=== PATIENT | male | born 1970 | race Caucasian/White ===

== ENCOUNTER 2018-02-21 08:48 | Emergency (ER) | payer BC ==
[2018-02-21] MEDS ORDERED: Acetaminophen TAB* 325 MG PO ONE (09:37)
--- NOTE | 2018-02-21 10:23 | RAD ---
HISTORY: Fever COMPARISONS: January 13, 2015 VIEWS: 7: Frontal dual-energy and lateral views of the chest. FINDINGS: CARDIOMEDIASTINAL SILHOUETTE: The cardiomediastinal silhouette is normal. ERYN: The eryn are normal. PLEURA: The costophrenic angles are sharp. No pleural abnormalities are noted. LUNG PARENCHYMA: The lung volumes are low. The lungs are clear. ABDOMEN: The upper abdomen is clear. There is no subphrenic gas. BONES AND SOFT TISSUES: Degenerative changes are noted along the spine. OTHER: None. IMPRESSION: LOW LUNG VOLUMES. NO ACTIVE CARDIOPULMONARY DISEASE.
[2018-02-21 10:56] VITALS: BP 116/65
[2018-02-21] MEDS ORDERED: Penicillin G Benzathine 1.2MU* 1,200,000 UNITS/2 ML SYR IM ONE (11:08)
[2018-02-21] MEDS ORDERED: Ibuprofen TAB* 200 MG PO ONE (11:10)
--- NOTE | 2018-02-21 12:37 | UC ---
Lele Pan Stephanie, [facility] for [facility] on 02/21/18 at 1125 . General HPI - HPI Summary HPI Summary: In room note: The pt is a 47 y/o M presenting to with c/o fever that began at 01:00 today. 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 Symptoms include diarrhea, sore throat and difficulty swallowing secondary to sore throat that began on 02/19/18 and dizziness since 01:00 that has since resolved. He reports recent sick contacts at work and had a dog kiss him on his lips. He reports recent skin infection on R hand a few years ago. The pt denies other physical symptoms including neck pain, N/V. Note: 47 y/o M with a hx of cellulitis and sepsis (according to pt), complains of elevated temperature to 106.5 F as taken at via temporal artery scanner. The pt is also congested with body aches and has a fullness in his chest with sore throat. He has visit hx significant for HTN that is being treated. He is also on an inhaler. Nurse Note: Pt states he has a hx of being septic from a staph infection. pt states he feels similar. pt states this started yesterday am. pt c/o shakes and feelings of being freezing. - History of Current Complaint Chief Complaint: UCRespiratory Stated Complaint: CONGESTED,BODYACHES Time Seen by Provider: 02/21/18 09:35 Hx Obtained From: Patient Onset/Duration: Gradual Onset, Lasting Days, Still Present Timing: Constant Current Severity: Moderate Pain Intensity: 8 Aggravating: nothing Alleviating: nothing Associated Signs & Symptoms: Positive: Fever - chills, diaphoresis, sore throat , difficulty swallowing, Other - chills, diaphoresis - Allergy/Home Medications Allergies/Adverse Reactions: Allergies Allergy/AdvReac Type Severity Reaction Status Date / Time No Known Allergies Allergy Verified 02/21/18 09:03 PMH/Surg Hx/FS Hx/Imm Hx Cardiovascular History: Hypertension - Surgical History Surgical History: Yes Surgery Procedure, Year, and Place: right ankle repair; abd hernia; wisdom teeth - Family History Known Family History: Positive: Cardiac Disease Negative: Renal Disease - Social History Occupation: Employed Part-time Lives: Alone Alcohol Use: Daily Alcohol Amount: 2 beers per day Substance Use Type: None Smoking Status (MU): Heavy Every Day Tobacco Smoker Type: Cigarettes Have You Smoked in the Last Year: Yes When Did the Patient Quit Smoking/Using Tobacco: has not smoked in 6 weeks - Immunization History Most Recent Influenza Vaccination: fall 2013 Most Recent Tetanus Shot: 01/12/15 Most Recent Pneumonia Vaccination: never Review of Systems Constitutional: Fever, Chills Skin: Negative Eyes: Negative ENT: Sore Throat, Other - difficulty swallowing Respiratory: Negative Cardiovascular: Negative Gastrointestinal: Diarrhea Genitourinary: Negative Motor: Negative Neurovascular: Negative Musculoskeletal: Negative Neurological: Negative Psychological: Negative All Other Systems Reviewed And Are Negative: Yes - Comments Additional Review of Systems Comments: POSITIVE: diarrhea, sore throat, difficulty swallowing, chills, fever, diaphoresis NEGATIVE: Neck pain, N/V Physical Exam - Summary Physical Exam Summary: Appearance: The patient is well-appearing, is in no pain distress, and is well- nourished. Eyes: Conjunctiva are clear. ENT: The hearing is grossly normal, the pharynx is normal, and the TMs are normal. There is no muffled or hoarse voice. No drooling present. Sinuses nontender. BILATERAL TONSILLAR SWELLING BUT NOT TO MIDLINE. SLIGHT BILATERAL EXUDATE AND ERYTHEMA, NO EVIDENCE OF PERITONSILAR ABSCESS ON EITHER SIDE. Neck: The neck is supple. MILD ANTERIOR CERVICAL ADENOPATHY WITH DISCOMFORT. Respiratory: The chest is nontender. The lungs are clear, there are normal breath sounds, and there is no respiratory distress. Cardiovascular: Heart is regular rate and rhythm. There is no murmur. Abdomen: The abdomen is soft and nontender. There is no organomegaly. Bowel sounds: present Musculoskeletal: Strength is intact. The patient moves all extremities. Neurological: The patient is alert and oriented 3x. Cranial nerves 2-12 intact. Psychological: The patient displays age appropriate behavior Skin: Negative for rashes. PT CLEARLY DIAPHORETIC Triage Information Reviewed: Yes Vital Signs: Initial Vital Signs Temp 106.5 F 02/21/18 08:58 Pulse 97 02/21/18 08:58 Resp 18 02/21/18 08:58 BP 154/85 02/21/18 08:58 Pulse Ox 97 02/21/18 08:58 Vital Signs Reviewed: Yes Diagnostics - Radiology CXR Xray Interpretation: No Acute Changes Radiology Interpretation Completed By: Radiologist - LOW LUNG VOLUMES. NO ACTIVE CARDIOPULMONARY DISEASE. physician has reviewed this report. Course/Dx - Course Course Of Treatment: Medications have been included in the original chart and reviewed.Elevated BP but has current hypertension diagnosis and treatment. This should be rechecked a few times in the next month. 47 y/o M with sore throat and a temperature of 106 F. CXR and UA do not reveal an infection. Influenza test negative. Rapid strep positive. Orthostatics mildly positive with increasing pulse although pt is not symptomatic. His neck is supple and he has no rash with previous hx of cellulitis and sepsis noted. His temperature was responsive to acetaminophen. physician diagnosed the pt with strep pharyngitis and gave him 1.2 million units of benzathine penicillin and strongly urged the pt to go to the ED if he has increased difficulty swallowing and continued temperature tomorrow. Vital signs stable at discharge although he does have a temp of 101.4 F. - Differential Dx - Multi-Symptom Differential Diagnoses: Other - influenza vs strep Provider Diagnoses: strep pharyngitis; mild dehydration Discharge - Sign-Out/Discharge Documenting (check all that apply): Discharge/Admit/Transfer - Discharge - Discharge Plan Condition: Stable Disposition: HOME Patient Education Materials: Dehydration (ED), Strep Throat (ED) Referrals: Natasha Porter [Primary Care Provider] - Additional Instructions: Elevated BP but has current hypertension diagnosis and treatment. This should be rechecked a few times in the next month. PLEASE SEEK CARE AT THE EMERGENCY DEPARTMENT IF SYMPTOMS WORSEN OR IF NEW SYMPTOMS DEVELOP. FOLLOW UP WITH YOUR PRIMARY CARE PHYSICIAN. WE DISCUSSED: 1. You have strep throat. 2. Your fever appears to respond to both acetaminophen and ibuprofen. You can take thes emedications at home for a temperature above 102, or if you feel uncomfortably warm at any temperature. 3. You have been given an antibiotic shot to treat your strep throat. You should not need any other antibiotics. 4. You should follow up with me on Friday if you are not improving. 5. IF YOU HAVE A TEMPERATURE TOMORROW, GO TO THE ED. 6. You are dehydrated. Drink lots of fluids today. You can drink Gatorade but dilute it with water; half gatorade, half water. Bananas are a good source of potassium. 7. If you get dizzy with sanding or short of brath, re check. 8. Call at any time with questions ro concerns. Go to ED for new pain or symptoms. Difficulty swallowing or breathing. 9. Teas and honey for sore throat; also, ice chips can help. - Billing Disposition and Condition Condition: STABLE Disposition: HOME The documentation as recorded by the Lele an Stephanie accurately reflects the service I personally performed and the decisions made by me, Jairo Jesus MD.
--- NOTE | 2018-02-21 19:24 | UC ---
- Progress Note Progress Note: February 21, 2018 1900 I spoke to the patient to check on his condition. His throat still hurts but is less sore. His temperature is "around 100." I advised him to go to the ED tomorrow morning if his temperature is above 98.6. I told him I will check on his chart to see if he needed more evaluation and call him, as needed. I told him that he should call or see me on Friday if he has any problems at that time. He said that he understood and would go to ED , if he has a temperature tomorrow. Jairo Jesus MD Discharge - Sign-Out/Discharge Documenting (check all that apply): Post-Discharge Follow Up - Discharge Plan Condition: Stable Disposition: HOME Patient Education Materials: Dehydration (ED), Strep Throat (ED) Referrals: Natasha Porter [Primary Care Provider] - Additional Instructions: Elevated BP but has current hypertension diagnosis and treatment. This should be rechecked a few times in the next month. PLEASE SEEK CARE AT THE EMERGENCY DEPARTMENT IF SYMPTOMS WORSEN OR IF NEW SYMPTOMS DEVELOP. FOLLOW UP WITH YOUR PRIMARY CARE PHYSICIAN. WE DISCUSSED: 1. You have strep throat. 2. Your fever appears to respond to both acetaminophen and ibuprofen. You can take thes emedications at home for a temperature above 102, or if you feel uncomfortably warm at any temperature. 3. You have been given an antibiotic shot to treat your strep throat. You should not need any other antibiotics. 4. You should follow up with me on Friday if you are not improving. 5. IF YOU HAVE A TEMPERATURE TOMORROW, GO TO THE ED. 6. You are dehydrated. Drink lots of fluids today. You can drink Gatorade but dilute it with water; half gatorade, half water. Bananas are a good source of potassium. 7. If you get dizzy with sanding or short of brath, re check. 8. Call at any time with questions ro concerns. Go to ED for new pain or symptoms. Difficulty swallowing or breathing. 9. Teas and honey for sore throat; also, ice chips can help. - Billing Disposition and Condition Condition: STABLE Disposition: HOME
--- NOTE | 2018-02-22 17:13 | UC ---
- Progress Note Progress Note: Progress Note: Spoke to patient. He is afebrile. Throat still hurts. He will recheck with me tomorrow at the [facility]. Jairo Jesus MD Discharge - Sign-Out/Discharge Documenting (check all that apply): Post-Discharge Follow Up - Discharge Plan Condition: Stable Disposition: HOME Patient Education Materials: Dehydration (ED), Strep Throat (ED) Referrals: Natasha Porter [Primary Care Provider] - Additional Instructions: Elevated BP but has current hypertension diagnosis and treatment. This should be rechecked a few times in the next month. PLEASE SEEK CARE AT THE EMERGENCY DEPARTMENT IF SYMPTOMS WORSEN OR IF NEW SYMPTOMS DEVELOP. FOLLOW UP WITH YOUR PRIMARY CARE PHYSICIAN. WE DISCUSSED: 1. You have strep throat. 2. Your fever appears to respond to both acetaminophen and ibuprofen. You can take thes emedications at home for a temperature above 102, or if you feel uncomfortably warm at any temperature. 3. You have been given an antibiotic shot to treat your strep throat. You should not need any other antibiotics. 4. You should follow up with me on Friday if you are not improving. 5. IF YOU HAVE A TEMPERATURE TOMORROW, GO TO THE ED. 6. You are dehydrated. Drink lots of fluids today. You can drink Gatorade but dilute it with water; half gatorade, half water. Bananas are a good source of potassium. 7. If you get dizzy with sanding or short of brath, re check. 8. Call at any time with questions ro concerns. Go to ED for new pain or symptoms. Difficulty swallowing or breathing. 9. Teas and honey for sore throat; also, ice chips can help. - Billing Disposition and Condition Condition: STABLE Disposition: HOME
== END 2018-02-21 11:43 | disposition home or self-care (01) ==
LOC: UCEAST 08:48
DX: J02.0 Streptococcal pharyngitis (principal); E86.0 Dehydration; I10 Essential (primary) hypertension; Z87.891 Personal history of nicotine dependence
CPT/HCPCS: 71046; 81003; 87502; 87651; 96372; 99213; A9270-GY; G0463; J0558

== ENCOUNTER 2018-02-23 07:04 | Emergency (ER) | payer BC ==
[2018-02-23 07:24] VITALS: BP 141/72
--- NOTE | 2018-02-23 08:12 | UC ---
Brandi Pan Emily, scribed for Jairo Jesus MD on 02/23/18 at 0757 . Throat Pain/Nasal [place]ade HPI - HPI Summary HPI Summary: In Room: This patient is a 47 year old M presenting to [facility] care with a chief complaint of sore throat that began on 02/21/2018. The patient rates the pain 5/ 10 in severity. Symptoms aggravated by swallowing. Symptoms alleviated by nothing. Patient reports fever (resolved) and diaphoresis. Patient denies chills. Pt reports sick contacts at work. MD: Vital signs stable. Temperature 96.3. Blood pressure elevated systolic is being treated. Patient returns with continued sore throat, at my recommendation. Nurse's: Recheck from Friday per Dr. Burroughs recommendation presents with sore throat today. - History of Current Complaint Chief Complaint: UCGeneralIllness Stated Complaint: SORE THROAT Time Seen by Provider: 02/23/18 07:08 Hx Obtained From: Patient Onset/Duration: Sudden Onset, Lasting Days, Still Present Severity: Moderate Pain Intensity: 5 Pain Scale Used: 0-10 Numeric Associated Signs & Symptoms: Positive: Fever - Allergies/Home Medications Allergies/Adverse Reactions: Allergies Allergy/AdvReac Type Severity Reaction Status Date / Time No Known Allergies Allergy Verified 02/23/18 07:24 PMH/Surg Hx/FS Hx/Imm Hx Previously Healthy: No Cardiovascular History: Hypertension Respiratory History: Bronchitis - Surgical History Surgical History: Yes Surgery Procedure, Year, and Place: right ankle repair; abd hernia; wisdom teeth - Family History Known Family History: Positive: Cardiac Disease Negative: Renal Disease - Social History Occupation: Employed Full-time Lives: Alone Alcohol Use: Daily Alcohol Amount: 2 beers per day Substance Use Type: None Smoking Status (MU): Heavy Every Day Tobacco Smoker Type: Cigarettes Have You Smoked in the Last Year: Yes When Did the Patient Quit Smoking/Using Tobacco: has not smoked in 6 weeks - Immunization History Most Recent Influenza Vaccination: fall 2013 Most Recent Tetanus Shot: 01/12/15 Most Recent Pneumonia Vaccination: never Review of Systems Constitutional: Fever - resolved, Other - Negative chills Skin: Other - Positive diaphoresis ENT: Sore Throat All Other Systems Reviewed And Are Negative: Yes Physical Exam - Summary Physical Exam Summary: Appearance: The patient is well-appearing, is in no pain distress, and is well- nourished. Eyes: Conjunctiva are clear. ENT: The hearing is grossly normal and the TMs are normal. There is no muffled or hoarse voice. TONSILS ARE SWOLLEN BILATERALLY, SOME EVIDENCE OF PUS NOTED IN THE RIGHT TONSILLAR CRYPT. TONGUE IS SLIGHTLY WHITE. THIS COULD BE YEAST IN RESPONSE TO ANTIBIOTICS OR GEOGRAPHIC TONGUE. THE PATIENT HAS HAD GLUCOSE CHECKED AND IT WAS WITHIN NORMAL LIMITS IN THE LAST MONTH. THROAT IS OPEN. NO PERITONSILAR TENDERNESS, THAT WOULD BE CONSISTENT WITH ABSCESS. Neck: MILD ANTERIOR ADENOPATHY THAT IS TENDER, THIS IS CONSISTENT WITH MY PREVIOUS EXAM 48 HOURS AGO. Respiratory: The chest is nontender. The lungs are clear, there are normal breath sounds, and there is no respiratory distress. Cardiovascular: Heart is regular rate and rhythm. There is no murmur. Abdomen: The abdomen is soft and nontender. There is no organomegaly. Bowel sounds: present Musculoskeletal: Strength is intact. The patient moves all extremities. Neurological: The patient is alert. Psychological: The patient displays age appropriate behavior Skin: Negative for rashes. Triage Information Reviewed: Yes Vital Signs: Initial Vital Signs Temp 96.3 F 02/23/18 07:08 Pulse 73 02/23/18 07:08 Resp 19 02/23/18 07:08 BP 142/76 02/23/18 07:08 Pulse Ox 97 02/23/18 07:08 Vital Signs Reviewed: Yes Throat Pain/Nasal Course/Dx - Course Assessment/Plan: 47 year old male with a significant case of strep throat seen by me 2 days ago with a temperature of 106.5, appears to be getting better. He is afebrile and without orthostasis today. He does have white tongue, which may be oral candidiasis. His rapid strep remains positive. I will start him on Keflex to deal with any possible carrier state, ad will begin him on clotrimazole troches. He will follow up for any temperature or continued complaints this coming week with PCP. I have instructed him to go to the ED for any new problems including temperature or difficulty swallowing. Elevated BP but has current hypertension diagnosis and treatment. This should be rechecked a few times in the next month. Medications have been included in the original chart and reviewed. - Differential Dx/Diagnosis Provider Diagnoses: strep throat, resolving; oral candidiasis Discharge - Sign-Out/Discharge Documenting (check all that apply): Discharge/Admit/Transfer - Discharge Plan Condition: Stable Disposition: HOME Prescriptions: Cephalexin CAP* [Keflex 500 CAP*] 500 mg PO QID #28 cap MDD 4 Clotrimazole JP* [Mycelex Jp*] 10 mg MT SEE INSTRUCTIONS #70 jp Patient Education Materials: Strep Throat (ED), Oral Candidiasis (ED) Referrals: Natasha Porter [Primary Care Provider] - Additional Instructions: WE DISCUSSED: 1. Your infection is under control. 2. Your test today was still positive and your vital signs were normal. You have white substance on your tongue, probably yeast related to the antibiotic. 3. To make sure any remaining infection is covered, start Keflex 500mg, four times a day for 7 days. I have given you medicine, five times a day for 2 weeks for your tongue. 4. You should not be spiking a fever anymore and your sore throat will slowly get better over the next. If you have any new pain or temperature, go to ED or call us. 5. Follow up with your doctor, if you still have a sore throat after 2 weeks. 6. In 2 days you should not having any temperature and your throat and tongue should be getting better. If not see your doctore. 7. Again, go to ED for any sudden change in swallowing, breathing or temperature. - Billing Disposition and Condition Condition: STABLE Disposition: HOME The documentation as recorded by the Brandi an Emily accurately reflects the service I personally performed and the decisions made by me, Jairo Jesus MD.
== END 2018-02-23 08:15 | disposition home or self-care (01) ==
LOC: UCEAST 07:04
DX: J02.0 Streptococcal pharyngitis (principal); B37.0 Candidal stomatitis; R61 Generalized hyperhidrosis; I10 Essential (primary) hypertension; J35.8 Other chronic diseases of tonsils and adenoids; F17.210 Nicotine dependence, cigarettes, uncomplicated
CPT/HCPCS: 87651; 99212; G0463

== ENCOUNTER 2020-01-13 12:41 | Emergency (ER) | payer BC ==
[2020-01-13] MEDS ORDERED: NS 0.9% 1000 ML** 1,000 ML IV ONE (12:58)
--- NOTE | 2020-01-13 13:04 | ED ---
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 He later went to the bathroom and felt improved, but his symptoms returned and he notes having chest pain described as a pressure sensation. He denies the chest pain radiated anywhere. Patient denies shortness of breath, diaphoresis, nausea, vomiting, or diarrhea. He notes having a change in bowel movements recently. No aggravating or alleviating factors are reported. He reports similar symptoms a few years ago for which he had a cardiac workup at [facility], [place]. He denies any positive contact with COVID-19 positive person. PMHx is significant for gout, anxiety, HTN, and DM, but he denies a history of cardiac disease or blood clots. He states he recently increased his dosage for HTN medications on 01/07/20. He has also been prescribed Metformin, but has not yet started this medication. FMHx is significant for cardiac disease and HLD. Typically, patient drinks 16 beers weekly, but states he drank 7-8 beers on the night of 01/12/20. Patient also admits occasional tobacco use. - History Of Current Complaint Chief Complaint: EDDizziness Time Seen by Provider: 01/13/20 12:43 Hx Obtained From: Patient Onset/Duration: Sudden Onset, Still Present Timing: Constant Severity Currently: Moderate Severity Initially: Moderate Character: Pressure Aggravating Factor(s): Nothing Alleviating Factor(s): Nothing Associated Signs And Symptoms: Positive: Chest Pain, Recent Medication Changes. Negative: SOB, Nausea, Vomiting, Diarrhea, Diaphoresis - Allergies/Home Medications Allergies/Adverse Reactions: Allergies Allergy/AdvReac Type Severity Reaction Status Date / Time No Known Allergies Allergy Verified 02/23/18 07:24 Home Medications: Home Medications Aspirin EC TAB* [Ecotrin EC Low Dose 81 MG*] 81 mg PO DAILY 01/16/15 [History Confirmed 01/13/20] Lisinopril TAB* [Prinivil TAB 10 MG*] 40 mg PO DAILY 01/16/15 [History Confirmed 01/13/20] Multivitamins/Minerals TAB* [Theragran/minerals TAB*] 1 tab PO DAILY 01/16/15 [ History Confirmed 01/13/20] Moneta-3 Fatty Acids (Nf) [Fish Oil (NF)] 1,000 mg PO DAILY 01/16/15 [History Confirmed 01/13/20] Allopurinol TAB* [Zyloprim 300 MG TAB*] 300 mg PO DAILY 01/13/20 [History Confirmed 01/13/20] Colchicine* [Colcrys*] 0.6 mg PO ONCE 01/13/20 [History Confirmed 01/13/20] Indomethacin CAP* [Indocin CAP*] 50 mg PO TID PRN 01/13/20 [History Confirmed ] PMH/Surg Hx/FS Hx/Imm Hx Previously Healthy: Yes Endocrine/Hematology History: Reports: Hx Diabetes Cardiovascular History: Reports: Hx Hypertension Denies: Hx Congestive Heart Failure, Hx Embolism Respiratory History: Reports: Other Respiratory Problems/Disorders - INHAILER Denies: Hx Pulmonary Embolism Musculoskeletal History: Reports: Hx Gout Sensory History: Reports: Hx Contacts or Glasses Opthamlomology History: Reports: Hx Contacts or Glasses Psychiatric History: Reports: Hx Anxiety - Surgical History Surgical History: Yes Surgery Procedure, Year, and Place: right ankle repair; abd hernia; wisdom teeth Infectious Disease History: No Infectious Disease History: Denies: Hx Clostridium Difficile, Hx Hepatitis, Hx Human Immunodeficiency Virus (HIV), Hx of Known/Suspected MRSA, Hx Shingles, Hx Tuberculosis, Hx Known/ Suspected VRE, Hx Known/Suspected VRSA, History Other Infectious Disease, Traveled Outside the [place] in Last 30 Days - Family History Known Family History: Positive: Cardiac Disease, Other - HLD Negative: Renal Disease - Social History Occupation: Employed Full-time Alcohol Use: Daily Alcohol Amount: 2 beers per day Hx Substance Use: No Substance Use Type: Reports: None Hx Tobacco Use: Yes - CIGARS OCCASSIONALY Smoking Status (MU): Heavy Every Day Tobacco Smoker Type: Cigarettes, Cigars Have You Smoked in the Last Year: Yes Review of Systems Negative: Skin Diaphoresis Positive: Chest Pain Negative: Shortness Of Breath Positive: Other - Positive changes in bowel movements. Negative: Vomiting, Diarrhea, Nausea Neurological/Mental Status: Other - Positive lightheadedness Positive: Paresthesia - Bilateral UE, left more than right All Other Systems Reviewed And Are Negative: Yes Physical Exam - Summary Physical Exam Summary: Constitutional: Well-developed, Obese, Alert. (-) Distressed Skin: Warm, Dry HENT: Normocephalic; Atraumatic Eyes: Conjunctiva normal Neck: Musculoskeletal ROM normal neck. (-) JVD, (-) Stridor, (-) Tracheal deviation Cardio: Rhythm regular, rate normal, Heart sounds normal; Intact distal pulses; The pedal pulses are 2+ and symmetric. Radial pulses are 2+ and symmetric. (-) Murmur Pulmonary/Chest wall: Effort normal. (-) Respiratory distress, (-) Wheezes, (-) Rales Abd: Soft, (-) tenderness, (-) Distension, (-) Guarding, (-) Rebound Musculoskeletal: (-) Edema Lymph: (-) Cervical adenopathy Neuro: Alert, Oriented x3 Psych: Mood and affect Normal Triage Information Reviewed: Yes Vital Signs On Initial Exam: Initial Vitals Temp Pulse Resp BP Pulse Ox 98.6 F 70 22 173/87 97 01/13/20 12:45 01/13/20 12:45 01/13/20 12:45 01/13/20 12:45 01/13/20 12:45 Vital Signs Reviewed: Yes Procedures - Sedation Patient Received Moderate/Deep Sedation with Procedure: No Diagnostics - Vital Signs Vital Signs Temp Pulse Resp BP Pulse Ox 01/13/20 12:45 98.6 F 70 22 173/87 97 - Laboratory Result Diagrams: 01/13/20 13:06 01/13/20 13:06 Lab Statement: Any lab studies that have been ordered have been reviewed, and results considered in the medical decision making process. - Radiology Chest X-ray Radiology Interpretation Completed By: Radiologist Summary of Radiographic Findings: Chest X-ray IMPRESSION: NO ACTIVE CARDIOPULMONARY DISEASE IS NOTED. Reviewed by Dr. Emery. - EKG 12:57 Cardiac Rate: NL - 65 BPM EKG Rhythm: Sinus Rhythm ST Segment: Normal Ectopy: None Summary of EKG Findings: EKG at 12:57 shows normal sinus rhythm with 65 BPM, no ischemic changes. Dr. Emery has reviewed and interpreted this EKG. 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 He later went to the bathroom and felt improved, but his symptoms returned and he notes having chest pain described as a pressure sensation. He denies the chest pain radiated anywhere. Patient denies shortness of breath, diaphoresis, nausea, vomiting, or diarrhea. He notes having a change in bowel movements recently. He reports similar symptoms a few years ago for which he had a cardiac workup at [facility], [place]. PMHx is significant for gout, anxiety, HTN, and DM, but he denies a history of cardiac disease or blood clots. He states he recently increased his dosage for HTN medications on 01/07/20. He has also been prescribed Metformin, but has not yet started this medication. FMHx is significant for cardiac disease and HLD. Typically, patient drinks 16 beers weekly, but states he drank 7-8 beers on the night of 01/12/20. Patient also admits occasional tobacco use. On exam, obese male. In the ED course, patient was given IV fluids. EKG at 12:57 shows normal sinus rhythm with 65 BPM, no ischemic changes. Chest X-ray IMPRESSION: NO ACTIVE CARDIOPULMONARY DISEASE IS NOTED. All other abnormal lab results are not pertinent to current cc. Heart Score: 3. Patient will be discharged with a diagnosis of chest pain, dizziness, and HTN. Follow up with PCP in 1-3 days. - Diagnoses Provider Diagnoses: HTN (hypertension), Chest pain, Dizziness Discharge ED - Sign-Out/Discharge Documenting (check all that apply): Patient Departure - Discharge - Discharge Plan Condition: Stable Disposition: HOME Patient Education Materials: Chest Pain (ED) Referrals: [facility] [Outside] Natasha Porter [Primary Care Provider] - Additional Instructions: RETURN TO THE EMERGENCY DEPARTMENT FOR CHANGING OR WORSENING SYMPTOMS. Follow up with your primary care physician in 1-3 days. - Billing Disposition and Condition Condition: STABLE Disposition: Home - Attestation Statements Document Initiated by Scribe: Yes Documenting Scribe: Dori Velasquez Provider For Whom Scribe is Documenting (Include Credential): Cosme Emery DO Scribe Attestation: IDori, scribed for Cosme Emery DO on 01/13/20 at 1728. Scribe Documentation Reviewed: Yes Provider Attestation: The documentation as recorded by the scribe, Dori Velasquez accurately reflects the service I personally performed and the decisions made by me, Cosme Emery DO Status of Scribe Document: Viewed
[2020-01-13 13:20] LABS: ABS Eosinophils 0.1 10^3/ul (0-0.6); ABS Lymphocytes 1.3 10^3/ul (1.0-4.8); ABS Monocytes 0.4 10^3/ul (0-0.8); ABS Neutrophils 4.8 10^3/ul (1.5-7.7); Hematocrit 41 % (42-52); Mean Corpuscular HGB Conc 35 g/dL (31-36); Mean Corpuscular Hemoglobin 32 pg (27-31); Mean Corpuscular Volume 91 fL (80-94); Mean Platelet Volume 8.7 fL (7.4-10.4); Nucleated Red Blood Cells % 0.1; Platelet Count 190 10^3/uL (150-450); Red Blood Count 4.44 10^6 /uL (4.18-5.48); Red Cell Distribution Width 15 % (10-15); White Blood Count 6.7 10^3/uL (3.5-10.8)
[2020-01-13 13:33] LABS: ALT 35 U/L (7-52); AST 33 U/L (13-39); Albumin/Globulin Ratio 1.4 (1-3); Alkaline Phosphatase 70 U/L (34-104); Anion Gap 6 mmol/L (2-11); BUN/Creatinine Ratio 12.9 (8-20); Blood Urea Nitrogen 12 mg/dL (6-24); CO2 Carbon Dioxide 25 mmol/L (22-32); Chloride 104 mmol/L (101-111); EGFR African American 103.6 (>60); EGFR Non-African American 85.7 (>60); Globulin 2.9 g/dL (2-4); Glucose 117 mg/dL (70-100); Potassium 4.5 mmol/L (3.5-5.0); Sodium 135 mmol/L (135-145); Total Protein 6.9 g/dL (6.4-8.9)
[2020-01-13 13:35] LABS: Troponin I 0.01 ng/mL (<0.03)
[2020-01-13 13:48] LABS: Alcohol < 10 mg/dL (<10)
--- OUTSIDE RECORDS SUMMARY | 2020-01-13 13:58 | XMS REPORT | Continuity of Care Document ---
:1970 External Reference #:[id number] Author Name Vicente Colon PA Address [address] [place] [id number] Problems Active Problems Provider Date Raised prostate specific antigen Vicente Colon PA Onset: 03/12/2018 Note: >6.58 --- 03/2018 -- Repeat 2.8 Morbid obesity Chantel Huynh MD Onset: 07/27/2015 Benign essential hypertension Renetta Moon MD Onset: 06/23/2006 Mixed hyperlipidemia Renetta Moon MD Onset: 09/17/2016 C-reactive protein abnormal Vicente Colon PA Onset: 09/17/2016 Note: >34 -- very elevated. Tobacco user Chantel Huynh MD Onset: 07/27/2015 Alcohol abuse Chantel Huynh MD Onset: 07/27/2015 Obstructive sleep apnea syndrome Chantel Huynh MD Onset: 07/27/2015 Gout Chantel Huynh MD Onset: 10/26/2015 HIV negative Vicente Colon PA Onset: 03/12/2018 Note: 03/2018 Hepatitis C screening Vicente Colon PA Onset: 03/12/2018 Note: Neg -- 03/2018 Social History Type Date Description Comments Sex Unknown Tobacco Use Start: Unknown End: Patient is a former smoker Quit 09/2016. chews Unknown on cigars occasionally. Smoking Status Reviewed: 11/17/19 Patient is a former smoker Quit 09/2016. chews on cigars occasionally. Allergies, Adverse Reactions, Alerts Active Allergies Reaction Severity Comments Date Bee Sting 12/26/2004 Bee Sting 12/26/2004 Medications Active Medications SIG Qnty Indications Ordering Date Provider Amoxicillin/Clavulan 1 by mouth every 20tabs J01.90 [facility], 11/17/2019 ate Potassium 12 hours Renetta Mejia MD 875-125mg Tablets Dulera 2 puff twice daily 8.800gm J01.90 [facility], 11/17/2019 100-5mcg/Act [sample x1] Renetta Mejia MD Aerosol Allopurinol take 1 tablet by 112tabs M10.9 [facility], 08/30/2019 100mg mouth every day Renetta Mejia MD Tablets for 3 weeks and then take 2 tablet by mouth every day for 3 weeks then take 3 tablet by mouth daily Activa Graduated wear thru day as 4pair I83.813 [facility], 08/30/2019 Therapy much as possible Renetta Mejia MD 20-30MMHG/Knee High/X-Large Misc Livalo 1 by mouth every 90tabs E78.2 [facility], 12/25/2018 4mg Tablets day [Failed Zocor, Renetta Mejia MD Lipitor, Crestor] Nicotine Mini 1 by mouth every 2 324units Z72.0 [facility], 09/17/2016 2mg hours as needed Renetta Mejia MD Lozenges cravings Proair HFA 2 P Four Times A 1units R06.2 Natasha Porter 11/19/2013 Day as Needed 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 Max 4 Days Per Flare Lisinopril Take 1 Tablet By 90tabs I10 [facility], 10/22/2011 10mg Mouth Daily Renetta Mejia MD Tablets Aspirin 1 PO qd I10 [facility], 01/21/2006 81mg Chewtabs Renetta Mejia MD Vitamin C 1 by mouth every Unknown Capsules day Vitamin D 1 by mouth every Unknown (Cholecalciferol) day Capsules Immunizations CPT Code Status Date Vaccine Lot # [id number] Given 07/05/2019 Influenza Vac, Quadrivalent, Split, 0.5mL Dosage, Im Use [id number] Given 07/29/2016 Influenza Vac, Quadrivalent, Split, 0.5mL Dosage, [id number] Im Use [id number] Given 08/11/2015 Influenza Vac, Quadrivalent, Split, 0.5mL Dosage, [id number] Im Use 55339 Given 01/12/2015 Tdap (Adacel) Ages 7 And Above Only [id number] Given 07/23/2013 Fluzone Trivalent Immunization [id number] Given 06/23/2006 Tetanus And Diptheria Toxoid 7 Years And Older [id number] Preserv Free Vital Signs Date Vital Result Comment 11/17/2019 10:04am Body Temperature 98.0 F Weight 365.19 lb Heart Rate 73 /min BP Systolic 136 mmHg BP Diastolic 83 mmHg Height 73 inches 6'1" BMI (Body Mass Index) 48.2 kg/m2 10/22/2019 8:01am Weight 359.19 lb Heart Rate 60 /min BP Systolic 140 mmHg BP Diastolic 83 mmHg Height 73 inches 6'1" BMI (Body Mass Index) 47.4 kg/m2 Results Test Acquired Date Facility Test Result H/L Range Note Laboratory test 11/17/2019 Done In Doctors Office 1 Rapid Flu A=NEG B=NEG finding Test (In House) Laboratory test 10/20/2019 [facility] Uric Acid 8.5 mg/dL High 2.6-8.4 finding Comprehensive Met 08/17/2019 [facility] Sodium 141 mmol/L 135-146 1 Panel-[facility] Potassium 5.3 mmol/L High 3.5-5.2 Chloride# 102 mmol/L 97-110 2 Carbon Dioxide 22 mmol/L Low 24-34 Calcium 9.6 mg/dL 8.5-10.5 3 Glucose 104 mg/dL 70-105 BUN 14 mg/dL 6-26 Creatinine 1.0 mg/dL 0.5-1.4 Total Protein 7.0 g/dL 6.0-8.0 Albumin 4.3 g/dL 3.6-4.9 Globulin 2.7 g/dL 2.0-3.5 A/G Ratio 1.6 Ratio 1.0-2.2 Total Bilirubin 0.7 mg/dL 0.1-1.3 Alkaline Phosphatase 70 U/L 24-140 Alt 30 U/L 3-42 Ast 24 U/L 8-42 Anion Gap 17 mmol/L High 5-15 4 Female Egfr 68 >60 5 Male Egfr 90 >60 6 Lipid 08/17/2019 [facility] Cholesterol 211 mg/dL High 50-199 Triglycerides 240 mg/dL High 30-200 HDL 40 mg/dL 29-71 7 Chol/ HDL Ratio 5.3 ratio 4.0-6.7 VLDL 48 mg/dL High 2-29 LDL (Calc) 123 mg/dL High 20-99 8 Laboratory test finding 08/17/2019 [facility] Magnesium 1.8 mg/dL 1.5-2.7 Uric Acid 8.6 mg/dL High 2.6-8.4 Hemoglobin A1c 08/17/2019 [facility] Hemoglobin A1c 6.1 % High 4.1-5.9 Estimated Average Glucose Calc 128 mg/dL 71-140 1 Updated reference range on new analyzer 2 Updated reference range on new analyzer 3 Updated reference range 02-03-2019 4 Updated Reference Range 5 Concerning GFR Guidelines for Americans: Normal function or mild renal disease, if clinically at risk: >/= 60 mL/min Moderately decreased: 30-59 Severely decreased: 15-29 Renal failure: <15 There is reduced accuracy above 60ml/min/1.73 m squared, but the numeric value may be clinically useful in the near 60 range 6 Concerning GFR Guidelines: Normal function or mild renal disease, if clinically at risk: >/= 60 mL/min Moderately decreased: 30-59 Severely decreased: 15-29 Renal failure: <15 There is reduced accuracy above 60ml/min/1.73 m squared, but the numeric value may be clinically useful in the near 60 range Glomerular Filtration Rate (GFR) is estimated based on the CKD-EPI equation, which assumes a steady state for creatinine as recommended by the National Kidney Disease Education Program in conjunction with the National Institutes of Health and the National Kidney Foundation. Clinical conditions in which it may be necessary to measure GFR by using clearance methods include extremes of age and body size, severe malnutrition or obesity, diseases of skeletal muscle, paraplegia or quadriplegia, vegetarian diet, rapidly changing kidney function, and calculation of the dose of potentially toxic drugs that are excreted by the kidneys. 7 Per NCEP ATP III Guidelines: Results lower than 40 mg/dL are suggestive of increased risk for coronary artery disease. Results > or = to 60 mg/dL are considered a negative risk factor. 8 Per NCEP ATP III Guidelines: Normal Population <130 Patients with medical conditions: CHD/DM Optimal: <100 Borderline high: 130-159 High: 160-189 Very high: >189 Procedures Description No Information Available Medical Devices Description No Information Available Encounters Type Date Location Provider Dx Diagnosis Office Visit 10/22/2019 8:00a Vicente Johnson PA I10 Essential ( primary) hypertension E78.2 Mixed hyperlipidemia R73.9 Hyperglycemia, unspecified M10.9 Gout, unspecified G47.33 Obstructive sleep apnea (adult) (pediatric) R97.20 Elevated prostate specific antigen [PSA] Z72.0 Tobacco use 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 E66.01 Morbid (severe) obesity due to excess calories Z68.42 Body mass index (BMI) 45.0-49.9, adult Office Visit 08/30/2019 2:20p Vicente Johnson PA I10 Essential ( primary) hypertension E78.2 Mixed hyperlipidemia M10.9 Gout, unspecified R73.9 Hyperglycemia, unspecified G47.33 Obstructive sleep apnea (adult) (pediatric) Z72.0 Tobacco use R97.20 Elevated prostate specific antigen [PSA] 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 E66.01 Morbid (severe) obesity due to excess calories Z68.42 Body mass index (BMI) 45.0-49.9, adult Assessments Date Code Description Provider 11/17/2019 J01.90 Acute sinusitis, unspecified Vicente Colon PA 11/17/2019 R53.83 Other fatigue Vicente Colon PA 11/17/2019 E66.01 Morbid (severe) obesity due to excess Vicente Colon PA calories 11/17/2019 M10.9 Gout, unspecified Vicente Cloon PA 11/17/2019 Z68.42 Body mass index (BMI) 45.0-49.9, adult Vicente Colon PA 11/17/2019 J02.9 Acute pharyngitis, unspecified Vicente Colon PA 10/22/2019 I10 Essential (primary) hypertension Vicente Colon PA 10/22/2019 E78.2 Mixed hyperlipidemia Vicente Colon PA 10/22/2019 R73.9 Hyperglycemia, unspecified Vicente Colon PA 10/22/2019 M10.9 Gout, unspecified BiterVicente PA 10/22/2019 G47.33 Obstructive sleep apnea (adult) (pediatric) Vicente Colon PA 10/22/2019 R97.20 Elevated prostate specific antigen [PSA] Vicente Colon PA 10/22/2019 Z72.0 Tobacco use TheresarVicente PA 10/22/2019 I83.813 Varicose veins of bilateral lower Vicente Colon PA extremities with pain 10/22/2019 E66.01 Morbid (severe) obesity due to excess Vicente Colon PA calories 10/22/2019 Z68.42 Body mass index (BMI) 45.0-49.9, adult Vicente Colon PA 10/20/2019 M10.9 Gout, unspecified Renetta Moon MD 10/20/2019 M10.9 Gout, unspecified Nurses Schedule Joann 10/20/2019 M10.9 Gout, unspecified [facility] 08/30/2019 I10 Essential (primary) hypertension Vicente Colon PA 08/30/2019 E78.2 Mixed hyperlipidemia Vicente Colon PA 08/30/2019 M10.9 Gout, unspecified BiteVicente evans PA 08/30/2019 R73.9 Hyperglycemia, unspecified BiteVicente evans PA 08/30/2019 G47.33 Obstructive sleep apnea (adult) (pediatric) Vicente Colon PA 08/30/2019 Z72.0 Tobacco use Vicente Colon PA 08/30/2019 R97.20 Elevated prostate specific antigen [PSA] Vicente Colon PA 08/30/2019 I83.813 Varicose veins of bilateral lower Vicente Colon PA extremities with pain 08/30/2019 E66.01 Morbid (severe) obesity due to excess Vicente Colon PA calories 08/30/2019 Z68.42 Body mass index (BMI) 45.0-49.9, adult Vicente Colon PA 08/24/2019 I10 Essential (primary) hypertension Renetta Moon MD 08/24/2019 I10 Essential (primary) hypertension Vicente Colon PA 08/24/2019 E78.2 Mixed hyperlipidemia Renetta Moon MD 08/24/2019 E78.2 Mixed hyperlipidemia Vicente Colon PA 08/24/2019 M10.9 Gout, unspecified Renetta Moon MD 08/24/2019 M10.9 Gout, unspecified Vicente Colon PA 08/24/2019 R73.9 Hyperglycemia, unspecified Renetta Moon MD 08/24/2019 R73.9 Hyperglycemia, unspecified Vicente Colon PA 08/17/2019 I10 Essential (primary) hypertension [facility] 08/17/2019 E78.2 Mixed hyperlipidemia [facility] 08/17/2019 M10.9 Gout, unspecified [facility] 08/17/2019 R73.9 Hyperglycemia, unspecified [facility] Plan of Treatment Future Appointment(s):12/17/2019 8:10 am - Nurses Schedule Joann at [id number] 7:30 am - Vicente Colon PA at [id number]/17/2019 - Vicente Colon PAJ01.90 Acute sinusitis, unspecifiedNew Medication:Amoxicillin/Clavulanate Potassium 875-125 mg - 1 by mouth every 12 hoursDulera 100-5 mcg/Act - 2 puff twice daily [sample x1]Comments:will treat with abx and Dulera. maintain rest and fluids.R53.83 Other fatigueNew Labs:CBC with Auto Diff-[facility], Scheduled: Comprehensive Met Panel-[facility], Scheduled: 02/03/20Magnesium, Scheduled: Babesia M AB Igg Igm -[facility], Scheduled: 02/03/20Hga Antibodies,IgG and IgM -RL , Scheduled: 02/03/20E Chaffeensis Abs, Scheduled: 02/03/20Lyme Igm/Igg AB -RL, Scheduled: 02/03/20Lipid, Scheduled: 02/03/20Comments:labs ordered for prior to PEE66.01 Morbid (severe) obesity due to excess xdpwazieW03.9 Gout, unspecifiedNew Labs:Uric Acid-[facility], Scheduled: 02/03/20Comments:has been increasing the allopurinol and feeling a little better. ?tick dz.Z68.42 Body mass index (BMI) 45.0-49.9, oaobjE86.9 Acute pharyngitis, unspecified Functional Status Description No Information Available Mental Status Description No Information Available Referrals Description No Information Available
--- OUTSIDE RECORDS SUMMARY | 2020-01-13 13:58 | XMS REPORT | Continuity of Care Document ---
:1970 External Reference #:[id number] Author Name Vicente Colon PA (transmitted by agent of provider Natasha Multani) Address [address] [place] [id number] Problems Active Problems Provider Date Raised prostate [...] Unknown on cigars occasionally. Smoking Status Reviewed: 12/21/19 Patient is a former smoker Quit 09/2016. chews on cigars occasionally. Allergies, Adverse Reactions, Alerts Active Allergies Reaction Severity Comments Date Bee Sting 12/26/2004 Bee Sting 12/26/2004 Medications Active Medications SIG Qnty Indications Ordering Date Provider Allopurinol 1 by mouth every 90tabs M10.9 [facility], 12/21/2019 300mg day Renetta Mejia MD Tablets Shingrix 1 injection as 1units Z00.01 [facility], 12/21/2019 50mcg/0.5ML directed Renetta Mejia MD Suspension Rec Lisinopril 1 by mouth every 90tabs I10 [facility], 12/21/2019 40mg morning Renetta Mejia MD Tablets Activa Graduated wear thru day as 4pair I83.813 [facility], 08/30/2019 Therapy much as possible Renetta Mejia MD 20-30MMHG/Knee High/X-Large Misc Livalo 1 by mouth every 90tabs E78.2 [facility], 12/25/2018 4mg Tablets day [Failed Zocor, Renetta Mejia MD Lipitor, Crestor] Nicotine Mini 1 by mouth every 2 324units Z72.0 [facility], 09/17/2016 2mg hours as needed Renetta Mejia MD Lozenges cravings Proair HFA 2 P Four Times A 1units R06.2 Natasha Porter 11/19/2013 Day as Needed Hien RN MS CLIPMAN 108(90Base) mcg/Act Aerosol Colcrys 2 tabs at time of 45tabs M10.9 [facility], 07/23/2013 0.6mg Tablets flare, may take Renetta Mejia MD additional 1 tab 1 hour later,max 3 pills daily, then one tab once to twice daily Indomethacin Take 1 Capsule By 45caps M10.9 [facility], 10/22/2011 50mg Mouth Twice Daily Renetta Mejia MD Capsules as Needed. Max 4 Days Per Flare Fish Oil 1 po qd E78.2 Natasha Porter 10/22/2011 500mg Hien RN MS CLIPMAN Capsules Aspirin 1 PO qd I10 [facility], 01/21/2006 81mg Chewtabs Renetta Mejia MD Vitamin C 1 by mouth every Unknown Capsules day Vitamin D 1 by mouth every Unknown (Cholecalciferol) day Capsules History Medications Levofloxacin 1 by mouth 7tabs J01.90 Renetta Moon 11/19/2019 - 750mg every day for 7 MD Jackie 11/26/2019 Tablets days Amoxicillin/Clavulana 1 by mouth 20tabs J01.90 Renetta Moon 2019 - te Potassium every 12 hours MD Jackie 11/19/2019 875-125mg Tablets Dulera 2 puff twice 8.800gm J01.90 Renetta Moon 11/17/2019 - 100-5mcg/Act daily [sample MD Jackie 11/24/2019 Aerosol x1] Allopurinol take 1 tablet 112tabs M10.9 Renetta Moon 08/30/2019 - 100mg by mouth eleni Mejia MD 12/21/2019 Tablets day for 3 weeks and then take 2 tablet by mouth every day for 3 weeks then take 3 tablet by mouth daily Immunizations CPT Code Status Date Vaccine Lot # [id number] Given 07/05/2019 Influenza Vac, Quadrivalent, Split, 0.5mL Dosage, Im Use 06847 Given 07/29/2016 Influenza Vac, Quadrivalent, Split, 0.5mL Dosage, [id number] Im Use 94950 Given 08/11/2015 Influenza Vac, Quadrivalent, Split, 0.5mL Dosage, [id number] Im Use 83750 Given 01/12/2015 Tdap (Adacel) Ages 7 And Above Only [id number] Given 07/23/2013 Fluzone Trivalent Immunization [id number] Given 06/23/2006 Tetanus And Diptheria Toxoid 7 Years And Older [id number] Preserv Free Vital Signs Date Vital Result Comment 12/21/2019 7:29am Weight 375.12 lb Heart Rate 89 /min BP Systolic 145 mmHg BP Diastolic 86 mmHg Height 73 inches 6'1" BMI (Body Mass Index) 49.5 kg/m2 Urine Dipstick - Blood TRACE Urine Dipstick - Protein NEGATIVE Urine Dipstick - Glucose NEGATIVE Urine Dipstick - Leukocytes NEGATIVE 11/17/2019 10:04am Body Temperature 98.0 F Weight 365.19 lb Heart Rate 73 /min BP Systolic 136 mmHg BP Diastolic 83 mmHg Height 73 inches 6'1" BMI (Body Mass Index) 48.2 kg/m2 Results Test Acquired Date Facility Test Result H/L Range Note Laboratory test 12/21/2019 [facility] PSA <pending> finding Laboratory test 12/21/2019 [facility] Hemoglobin A1c <pending> finding Lyme Igm/Igg AB 12/17/2019 [facility] Lyme Igm/Igg AB @ NEGATIVE (Neg) 1 -RL Laboratory test 12/17/2019 [facility] Uric Acid 7.6 mg/dL 2.6-8.4 finding Lipid 12/17/2019 [facility] Cholesterol 179 mg/dL 50-199 Triglycerides 195 mg/dL 30-200 HDL 43 mg/dL 29-71 2 Chol/ HDL Ratio 4.1 ratio 4.0-6.7 VLDL 39 mg/dL High 2-29 LDL (Calc) 97 mg/dL 20-99 3 Laboratory test finding 12/17/2019 [facility] Magnesium 1.7 mg/dL 1.5-2.7 Comprehensive Met Panel-[facility] 12/17/2019 [facility] Sodium 140 mmol/L 135- 146 4 Potassium 4.9 mmol/L 3.5-5.2 Chloride# 101 mmol/L 97-110 5 Carbon Dioxide 30 mmol/L 24-34 Calcium 9.5 mg/dL 8.5-10.5 6 Glucose 103 mg/dL 70-105 BUN 16 mg/dL 6-26 Creatinine 1.0 mg/dL 0.5-1.4 Total Protein 6.8 g/dL 6.0-8.0 Albumin 4.4 g/dL 3.6-4.9 Globulin 2.4 g/dL 2.0-3.5 A/G Ratio 1.8 Ratio 1.0-2.2 Total Bilirubin 0.5 mg/dL 0.1-1.3 Alkaline Phosphatase 68 U/L 24-140 Alt 33 U/L 3-42 Ast 24 U/L 8-42 Anion Gap 9 mmol/L 5-15 7 Female Egfr 63 >60 8 Male Egfr 84 >60 9 [facility]2019 [facility] RBC 4.77 10*6/uL (4.60-6.10) HGB 14.4 g/dL (13.5-18.0) HCT 43.7 % (41.0-53.0) MCV 91.5 fL (80.0-95.0) MCH 30.2 pg (27.0-32.0) MCHC 33.0 g/dL (32.0-36.0) RDW 15.6 % High (10.5-14.5) PLT 209 10*3/uL (150-450) MPV 8.9 fL (7.1-10.7) WBC 7.0 10*3/uL (4.1-11.0) Neut % 57.1 % (35.0-75.0) Lymph % 32.9 % (16.0-52.0) [place] % 6.1 % (0.0-8.0) Eos % 3.2 % (0.0-5.0) Baso % 0.7 % (0.0-4.0) Neut # 4.0 10*3/uL (1.8-7.7) Lymph # 2.3 10*3/uL (1.2-4.8) [place] # 0.4 10*3/uL (0.0-0.8) Eos # 0.2 10*3/uL (0.0-0.5) Baso # 0.0 10*3/uL (0.0-0.2) 10 Laboratory test 11/17/2019 Done In Doctors Office 1 Rapid Flu A=NEG B=NEG finding Test (In House) Laboratory test 10/20/2019 [facility] Uric Acid 8.5 mg/dL High 2.6-8.4 finding Comprehensive Met 08/17/2019 [facility] Sodium 141 mmol/L 135-146 11 Panel-[facility] Potassium 5.3 mmol/L High 3.5-5.2 Chloride# 102 mmol/L 97-110 12 Carbon Dioxide 22 mmol/L Low 24-34 Calcium 9.6 mg/dL 8.5-10.5 13 Glucose 104 mg/dL 70-105 BUN 14 mg/dL 6-26 Creatinine 1.0 mg/dL 0.5-1.4 Total Protein 7.0 g/dL 6.0-8.0 Albumin 4.3 g/dL 3.6-4.9 Globulin 2.7 g/dL 2.0-3.5 A/G Ratio 1.6 Ratio 1.0-2.2 Total Bilirubin 0.7 mg/dL 0.1-1.3 Alkaline Phosphatase 70 U/L 24-140 Alt 30 U/L 3-42 Ast 24 U/L 8-42 Anion Gap 17 mmol/L High 5-15 14 Female Egfr 68 >60 15 Male Egfr 90 >60 16 Lipid 08/17/2019 [facility] Cholesterol 211 mg/dL High 50-199 Triglycerides 240 mg/dL High 30-200 HDL 40 mg/dL 29-71 17 Chol/ HDL Ratio 5.3 ratio 4.0-6.7 VLDL 48 mg/dL High 2-29 LDL (Calc) 123 mg/dL High 20-99 18 Laboratory test finding 08/17/2019 [facility] Magnesium 1.8 mg/dL 1.5-2.7 Uric Acid 8.6 mg/dL High 2.6-8.4 Hemoglobin A1c 08/17/2019 [facility] Hemoglobin A1c 6.1 % High 4.1-5.9 Estimated Average Glucose Calc 128 mg/dL 71-140 1 A Negative serologic test for Lyme Disease indicates no serologic evidence of infection with B burgdorferi at the time this specimen was collected. A repeat specimen should be collected in 2 to 4 weeks if clinically indicated. Unless otherwise specified, testing performed by [facility] [address] [place] [id number] 2 Per NCEP ATP III Guidelines: Results lower than 40 mg/dL are suggestive of increased risk for coronary artery disease. Results > or = to 60 mg/dL are considered a negative risk factor. 3 Per NCEP ATP III Guidelines: Normal Population <130 Patients with medical conditions: CHD/DM Optimal: <100 Borderline high: 130-159 High: 160-189 Very high: >189 4 Updated reference range on new analyzer 5 Updated reference range on new analyzer 6 Updated reference range 02-03-2019 7 Updated Reference Range 8 Concerning GFR Guidelines for Americans: Normal function or mild renal disease, if clinically at risk: >/= 60 mL/min Moderately decreased: 30-59 Severely decreased: 15-29 Renal failure: <15 There is reduced accuracy above 60ml/min/1.73 m squared, but the numeric value may be clinically useful in the near 60 range 9 Concerning GFR Guidelines: Normal function or mild [...] drugs that are excreted by the kidneys. 10 Unless otherwise specified, testing performed by [facility] [address] [place] [id number] 11 Updated reference range on new analyzer 12 Updated reference range on new analyzer 13 Updated reference range 02-03-2019 14 Updated Reference Range 15 Concerning GFR Guidelines for Americans: Normal function or mild renal disease, if clinically at risk: >/= 60 mL/min Moderately decreased: 30-59 Severely decreased: 15-29 Renal failure: <15 There is reduced accuracy above 60ml/min/1.73 m squared, but the numeric value may be clinically useful in the near 60 range 16 Concerning GFR Guidelines: Normal function or mild [...] drugs that are excreted by the kidneys. 17 Per NCEP ATP III Guidelines: Results lower than 40 mg/dL are suggestive of increased risk for coronary artery disease. Results > or = to 60 mg/dL are considered a negative risk factor. 18 Per NCEP ATP III Guidelines: Normal Population <130 Patients with medical conditions: CHD/DM Optimal: <100 Borderline high: 130-159 High: 160-189 Very high: >189 Procedures Description No Information Available Medical Devices Description No Information Available Encounters Type Date Location Provider Dx Diagnosis Office Visit 11/17/2019 Vicente Johnson PA J01.90 Acute sinusitis, 9:20a unspecified R53.83 Other fatigue E66.01 Morbid (severe) obesity due to excess calories M10.9 Gout, unspecified Z68.42 Body mass index (BMI) 45.0-49.9, adult J02.9 Acute pharyngitis, unspecified Office Visit 10/22/2019 8:00a Vicente Johnson PA [...] (BMI) 45.0-49.9, adult Office Visit 08/30/2019 2:20p iVcente Johnson PA I10 Essential ( primary) hypertension E78.2 Mixed hyperlipidemia M10.9 Gout, unspecified R73.9 Hyperglycemia, unspecified G47.33 Obstructive sleep apnea (adult) (pediatric) Z72.0 Tobacco use R97.20 Elevated prostate specific antigen [PSA] 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 E66.01 Morbid (severe) obesity due to excess calories Z68.42 Body mass index (BMI) 45.0-49.9, adult Assessments Date Code Description Provider 12/21/2019 Z00.01 Encounter for general adult medical Vicente Colon PA examination with abnormal findings 12/21/2019 I10 Essential (primary) hypertension Vicente Colon PA 12/21/2019 E78.2 Mixed hyperlipidemia Vicente Colon PA 12/21/2019 M10.9 Gout, unspecified Vicente Colon PA 12/21/2019 R73.9 Hyperglycemia, unspecified Vicente Colon PA 12/21/2019 G47.33 Obstructive sleep apnea (adult) (pediatric) Vicente Colon PA 12/21/2019 R97.20 Elevated prostate specific antigen [PSA] Vicente Colon PA 12/21/2019 Z72.0 Tobacco use Vicente Colon PA 12/21/2019 I83.813 Varicose veins of bilateral lower Vicente Colon PA extremities with pain 12/21/2019 Z12.5 Encounter for screening for malignant Vicente Colon PA neoplasm of prostate 12/21/2019 Z12.11 Encounter for screening for malignant Vicente Colon PA neoplasm of colon 12/21/2019 E66.01 Morbid (severe) obesity due to excess BiterVicente PA calories 12/21/2019 Z68.42 Body mass index (BMI) 45.0-49.9, adult BiterVicente PA 12/17/2019 R53.83 Other fatigue Nurs[facility] Schedule [place] 12/17/2019 I10 Essential (primary) hypertension [facility] [place] 12/17/2019 E78.2 Mixed hyperlipidemia [facility] [place] 12/17/2019 M10.9 Gout, unspecified [facility] [place] 11/17/2019 J01.90 Acute sinusitis, unspecified BiterVciente PA 11/17/2019 R53.83 Other fatigue BiterVicente PA 11/17/2019 E66.01 Morbid (severe) obesity due to excess BiterVicente PA calories 11/17/2019 M10.9 Gout, unspecified BiteVicente evans PA 11/17/2019 Z68.42 Body mass index (BMI) 45.0-49.9, adult BiteVicente evans PA 11/17/2019 J02.9 Acute pharyngitis, unspecified BiterVicente PA 10/22/2019 I10 Essential (primary) hypertension BiterVicente PA 10/22/2019 E78.2 Mixed hyperlipidemia BiterVicente PA 10/22/2019 R73.9 Hyperglycemia, unspecified BiterVicente PA 10/22/2019 M10.9 Gout, unspecified Biter, Vicente PA 10/22/2019 G47.33 Obstructive sleep apnea (adult) (pediatric) Vicente Colon PA 10/22/2019 R97.20 Elevated prostate specific antigen [PSA] Vicente Colon PA 10/22/2019 Z72.0 Tobacco use BiteVicente evans PA 10/22/2019 I83.813 Varicose veins of bilateral lower Vicente Colon PA extremities with pain 10/22/2019 E66.01 Morbid (severe) obesity due to excess BiterVicente PA calories 10/22/2019 Z68.42 Body mass index (BMI) 45.0-49.9, adult BiteVicente evans PA 10/20/2019 M10.9 Gout, unspecified Renetta Moon MD 10/20/2019 M10.9 Gout, unspecified [facility] [place] 10/20/2019 M10.9 Gout, unspecified [facility] 08/30/2019 I10 Essential (primary) hypertension Vicente Colon PA 08/30/2019 E78.2 Mixed hyperlipidemia Vicente Colon PA 08/30/2019 M10.9 Gout, unspecified Vicente Colon PA 08/30/2019 R73.9 Hyperglycemia, unspecified Vicente Colon PA 08/30/2019 G47.33 Obstructive sleep apnea (adult) [...] unspecified [facility] Plan of Treatment 12/21/2019 - Vicente Colon PAZ00.01 Encounter for general adult medical examination with abnormal findingsNew Medication:Shingrix 50 mcg/0.5ML - 1 injection as directedComments:EKG -- todayPSA -- due to recheck todayDRE -- defer to next yearColonoscopy -- + FH colon CA at 49yoMammo -- n/aPap -- n/ aDEXA [68yo] -- n/aFlu Vax -- 06/2019Pneumovax -- n/aPrevnar -- n/aShingrix -- sent to pharmacy.Tdap -- 01/2015Hep C -- n/aAAA screen -- n/a age [65-75yo]Lung CA -- n/a age [55-80yo]Ophtho -- q 1yrDentist -- q 4monthsHearing -- no issuesMemory/Cognition -- no issuesSexual Fxn -- fxn okayUrinary Fxn -- no issuesADL's -- independentIADL's -- independent Diet -- no special dietSafety at Home -- no concernsEnd of Life --Referral:Geremias Cruz MD, [id number] Essential (primary) hypertensionNew Medication:Lisinopril 40 mg - 1 by mouth every morningComments:stable on meds. slightly high siemlE61.2 Mixed hyperlipidemiaComments:fatigue and aches on the rosuvastatin. h/o not feeling well on rosuvastatin, atorvastatin, and simvastatin.??try Livalo -- pt to return for fasting labs. taking it most wtkfahT62.9 Gout, unspecifiedNew Medication:Allopurinol 300 mg - 1 by mouth every dayComments:has been increasing the allopurinol [now at 200mg] and feeling a little better. ?tick dz. will increase to 300mg.R73.9 Hyperglycemia, unspecifiedComments:A1C 6.1 - 08/2019 -- pre DM. beginnings of reduced insulin sensitivity Long discussion about pathopys of DM and preDM and treating early discussed CV risk ~16min and weight loss needed. ?? treat.G47.33 Obstructive sleep apnea (adult) (pediatric)Comments:using new bed that lifts up head. feels better in the morning. alert and energetic. h/o sleep study.R97.20 Elevated prostate specific antigen [PSA]Comments:recheck NL 07/2018. due to redraw.Z72.0 Tobacco useComments:stopped the cigarettes 2015. occasional chew on a cigar.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Comments:will Rx compression ifmxnfebtN76.5 Encounter for screening for malignant neoplasm of prostateComments:check PSA today. declined examZ12.11 Encounter for screening for malignant neoplasm of colonComments:with +FH. need colo. referral done.E66.01 Morbid (severe) obesity due to excess caloriesComments:lost 15lbs . lost 9 more pounds. doing well but none lost thru holidays UPDATE 12/21/2019:gained 10lbs. discuss ~16min weight loss and diet with likely heading to DM.Z68.42 Body mass index (BMI) 45.0-49.9, adult Functional Status Description No Information Available Mental Status Description No Information Available Referrals Refer to Reason for Referral Status Appt Date Geremias Cruz MD Created [address] [facility],[place] [address] [phone]
--- OUTSIDE RECORDS SUMMARY | 2020-01-13 13:58 | XMS REPORT | Continuity of Care Document ---
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 Problems Provider Date Raised prostate [...] Medications SIG Qnty Indications Ordering Date Provider Synjardy XR 1 by mouth every 90tabs [facility], 12/22/2019 in the morning Renetta Mejia MD 12.5-1000mg Tablets ER 24HR Allopurinol 1 by mouth every 90tabs M10.9 [facility], 12/21/2019 300mg day Renetta Mejia MD Tablets Shingrix 1 injection as 1units Z00.01 [facility], 12/21/2019 50mcg/0.5ML directed Renetta Mejia MD Suspension Rec Lisinopril 1 by mouth every 90tabs I10 [facility], 12/21/2019 40mg morning Renetta Mejia MD Tablets Activa Graduated wear thru day as 4pair I83.813 [facility], 08/30/2019 Therapy much as possible Renetta Mejia MD 20-30MMHG/Knee High/X-Large Misc Livalo 1 by mouth every 90tabs E78.2 [facility], 12/25/2018 4mg Tablets day [Failed Zocor, Renetta Mejia MD Lipitor, Crestor] Nicotine Mini 1 by mouth every 2 324units Z72.0 [facility], 09/17/2016 2mg hours as needed Renetta Mejia MD Lozenges cravings Proair HFA 2 P Four Times A 1units R06.2 Natasha Porter 11/19/2013 Day as Needed TERRA [place] [employer] 108(90Base) mcg/Act Aerosol Colcrys 2 tabs at time of 45tabs M10.9 [facility], 07/23/2013 0.6mg Tablets flare, may take Renetta Mejia MD additional 1 tab 1 hour later,max 3 pills daily, then one tab once to twice daily Indomethacin Take 1 Capsule By 45caps M10.9 [facility], 10/22/2011 50mg Mouth Twice Daily Renetta Mejia MD Capsules as Needed. Max 4 Days Per Flare Fish Oil 1 po qd E78.2 Natasha Porter 10/22/2011 500mg TER[employer] [place] [employer] Capsules [facility] 81mg Chewtabs Renetta Mejia MD Vitamin C 1 by mouth every Unknown Capsules day Vitamin D 1 by mouth every Unknown (Cholecalciferol) day Capsules History Medications Levofloxacin 1 by mouth 7tabs J01.90 Renetta Moon 11/19/2019 - 750mg every day for 7 M, 11/26/2019 Tablets days Amoxicillin/Clavulana 1 by mouth 20tabs J01.90 Renetta Moon 2019 - te Potassium every 12 hours M, 11/19/2019 875-125mg Tablets Dulera 2 puff twice 8.800gm J01.90 Renetta Moon 11/17/2019 - 100-5mcg/Act daily [sample M, 11/24/2019 Aerosol x1] Allopurinol take 1 tablet 112tabs M10.9 Renetta Moon 08/30/2019 - 100mg by mouth every M, 12/21/2019 Tablets day for 3 weeks and then take 2 tablet by mouth every day for 3 weeks then take 3 tablet by mouth daily Immunizations CPT Code Status Date Vaccine Lot # [id number] Given 07/05/2019 Influenza Vac, Quadrivalent, Split, 0.5mL Dosage, Im Use [id number] Given 07/29/2016 Influenza Vac, Quadrivalent, Split, 0.5mL Dosage, [id number] Im Use 63593 Given 08/11/2015 Influenza Vac, Quadrivalent, Split, 0.5mL Dosage, [id number] Im Use 51904 Given 01/12/2015 Tdap (Adacel) Ages 7 And Above Only [id number] Given 07/23/2013 Fluzone Trivalent Immunization [id number] Given 06/23/2006 Tetanus And Diptheria Toxoid 7 Years And Older [id number] Preserv Free Vital Signs Date Vital Result [...] Range Note Laboratory test 12/21/2019 [facility] PSA 0.650 ng/mL 0.000-4.000 1 finding Comprehensive Met 12/21/2019 [facility] Sodium 139 mmol/L 135-146 2 Panel-[facility] Potassium 5.1 mmol/L 3.5-5.2 Chloride# 101 mmol/L 97-110 3 Carbon Dioxide 32 mmol/L 24-34 Calcium 9.9 mg/dL 8.5-10.5 4 Glucose 106 mg/dL High 70-105 BUN 14 mg/dL 6-26 Creatinine 0.9 mg/dL 0.5-1.4 Total Protein 7.2 g/dL 6.0-8.0 Albumin 4.6 g/dL 3.6-4.9 Globulin 2.6 g/dL 2.0-3.5 A/G Ratio 1.8 Ratio 1.0-2.2 Total Bilirubin 0.3 mg/dL 0.1-1.3 Alkaline Phosphatase 77 U/L 24-140 Alt 25 U/L 3-42 Ast 21 U/L 8-42 Anion Gap 6 mmol/L 5-15 5 Female Egfr 76 >60 6 Male Egfr 99 >60 7 Hemoglobin A1c 12/21/2019 [facility] Hemoglobin A1c 6.5 % High 4.1-5.9 Estimated Average Glucose Calc 140 mg/dL 71-140 Z#Lyme Confirmation Abs Blood 12/21/2019 [facility] Lyme Igg B Lauren Negative 8 Lyme Igm B Lauren Negative 9 Lyme Igm/Igg AB -RL 12/17/2019 [facility] Lyme Igm/Igg AB @ NEGATIVE (Neg) 10 Hga Antibodies,IgG and IgM 12/17/2019 [facility] Hga AB Igg <1:80 11 -RL Hga AB Igm < 1:16 12 Babesia M AB Igg Igm -RL 12/17/2019 [facility] Babesia Microti Igg < 1:16 13 Babesia Microti Igm <1:20 14 Laboratory test finding 12/17/2019 [facility] Uric Acid 7.6 mg/dL 2.6-8.4 Lipid 12/17/2019 [facility] Cholesterol 179 mg/dL 50-199 Triglycerides 195 mg/dL 30-200 HDL 43 mg/dL 29-71 15 Chol/ HDL Ratio 4.1 ratio 4.0-6.7 VLDL 39 mg/dL High 2-29 LDL (Calc) 97 mg/dL 20-99 16 E Chaffeensis Abs 12/17/2019 [facility] E Chaffeensis Igg <1:64 17 E Chaffeensis Igm < 1:16 18 Laboratory test finding 12/17/2019 [facility] Magnesium 1.7 mg/dL 1.5-2.7 Comprehensive Met Panel-[facility] 12/17/2019 [facility] Sodium 140 mmol/L 135- 146 19 Potassium 4.9 mmol/L 3.5-5.2 Chloride# 101 mmol/L 97-110 20 Carbon Dioxide 30 mmol/L 24-34 Calcium 9.5 mg/dL 8.5-10.5 21 Glucose 103 mg/dL 70-105 BUN 16 mg/dL 6-26 Creatinine 1.0 mg/dL 0.5-1.4 Total Protein 6.8 g/dL 6.0-8.0 Albumin 4.4 g/dL 3.6-4.9 Globulin 2.4 g/dL 2.0-3.5 A/G Ratio 1.8 Ratio 1.0-2.2 Total Bilirubin 0.5 mg/dL 0.1-1.3 Alkaline Phosphatase 68 U/L 24-140 Alt 33 U/L 3-42 Ast 24 U/L 8-42 Anion Gap 9 mmol/L 5-15 22 Female Egfr 63 >60 23 Male Egfr 84 >60 24 CBC with Auto Diff-[facility]cmg 12/17/2019 [facility] RBC 4.77 10*6/uL (4.60-6.10) HGB 14.4 g/dL (13.5-18.0) HCT 43.7 % (41.0-53.0) MCV 91.5 fL (80.0-95.0) MCH 30.2 pg (27.0-32.0) MCHC 33.0 g/dL (32.0-36.0) RDW 15.6 % High (10.5-14.5) PLT 209 10*3/uL (150-450) MPV 8.9 fL (7.1-10.7) WBC 7.0 10*3/uL (4.1-11.0) Neut % 57.1 % (35.0-75.0) Lymph % 32.9 % (16.0-52.0) Glenn % 6.1 % (0.0-8.0) Eos % 3.2 % (0.0-5.0) Baso % 0.7 % (0.0-4.0) Neut # 4.0 10*3/uL (1.8-7.7) Lymph # 2.3 10*3/uL (1.2-4.8) Glenn # 0.4 10*3/uL (0.0-0.8) Eos # 0.2 10*3/uL (0.0-0.5) Baso # 0.0 10*3/uL (0.0-0.2) 25 Laboratory test 11/17/2019 Done In [facility] Office 1 Rapid Flu A=NEG B=NEG finding Test (In House) Laboratory test 10/20/2019 [facility] Uric Acid 8.5 mg/dL High 2.6-8.4 finding Comprehensive Met 08/17/2019 [facility] Sodium 141 mmol/L 135-146 26 Panel-[facility] Potassium 5.3 mmol/L High 3.5-5.2 Chloride# 102 mmol/L 97-110 27 Carbon Dioxide 22 mmol/L Low 24-34 Calcium 9.6 mg/dL 8.5-10.5 28 Glucose 104 mg/dL 70-105 BUN 14 mg/dL 6-26 Creatinine 1.0 mg/dL 0.5-1.4 Total Protein 7.0 g/dL 6.0-8.0 Albumin 4.3 g/dL 3.6-4.9 Globulin 2.7 g/dL 2.0-3.5 A/G Ratio 1.6 Ratio 1.0-2.2 Total Bilirubin 0.7 mg/dL 0.1-1.3 Alkaline Phosphatase 70 U/L 24-140 Alt 30 U/L 3-42 Ast 24 U/L 8-42 Anion Gap 17 mmol/L High 5-15 29 Female Egfr 68 >60 30 Male Egfr 90 >60 31 Lipid 08/17/2019 [facility] Cholesterol 211 mg/dL High 50-199 Triglycerides 240 mg/dL High 30-200 HDL 40 mg/dL 29-71 32 Chol/ HDL Ratio 5.3 ratio 4.0-6.7 VLDL 48 mg/dL High 2-29 LDL (Calc) 123 mg/dL High 20-99 33 Laboratory test finding 08/17/2019 [facility] Magnesium 1.8 mg/dL 1.5-2.7 Uric Acid 8.6 mg/dL High 2.6-8.4 Hemoglobin A1c 08/17/2019 [facility] Hemoglobin A1c 6.1 % High 4.1-5.9 Estimated Average Glucose Calc 128 mg/dL 71-140 1 Beginning 12/01/06 PSA values assayed at [facility] uses chemiluminescence methodology manufactured by [employer] for use on the DXI analyzer. Values obtained with different assay methods or kits can not be used interchangeably. Serum PSA measurement is not an absolute test for malignancy. The PSA value should be used in conjunction with information available from clinical evaluation and other diagnostic procedures. 2 Updated reference range on new analyzer 3 Updated reference range on new analyzer 4 Updated reference range 02-03-2019 5 Updated Reference Range 6 Concerning GFR Guidelines for Americans: Normal function or mild renal disease, if clinically at risk: >/= 60 mL/min Moderately decreased: 30-59 Severely decreased: 15-29 Renal failure: <15 There is reduced accuracy above 60ml/min/1.73 m squared, but the numeric value may be clinically useful in the near 60 range 7 Concerning GFR Guidelines: Normal function or mild [...] drugs that are excreted by the kidneys. 8 Negative Reference range: Negative Band(s) present: 28 kDa (Insufficient number of bands for positive result) INTERPRETIVE INFORMATION: B. burgdorferi IgG Immunoblot For this assay, a positive result is reported when any 5 or more of the following 10 bands are present: 18, 23, 28, 30, 39, 41, 45, 58, 66, or 93 kDa. All other banding patterns are reported as negative. 9 Negative Reference range: Negative Band(s) present: NONE (Insufficient number of bands for positive result) INTERPRETIVE INFORMATION: B. burgdorferi Antibody IgM Immunoblot For this assay, a positive result is reported when any 2 or more of the following bands are present: 23, 39, or 41 kDa. All other banding patterns are reported as negative. Performed by [facility], [address] [place] [address] www.[facility], Sundar Fields MD, Lab. Director Unless otherwise specified, testing performed by [facility] [address] [place] [id number] 10 A Negative serologic test for Lyme Disease indicates no serologic evidence of infection with B burgdorferi at the time this specimen was collected. A repeat specimen should be collected in 2 to 4 weeks if clinically indicated. Unless otherwise specified, testing performed by [facility] [address] [place] [id number] 11 <1:80 Reference range: <1:80 INTERPRETIVE INFORMATION: A. phagocytophilum (HGA) Antibody, IgG Less than 1:80 - No significant level of IgG antibodies to A. phagocytophilum detected. Greater than or equal to 1:80 - Suggestive of a recent or past infection with A. phagocytophilum. Test developed and characteristics determined by [facility]. See Compliance Statement B: [facility] 12 < 1:16 Reference range: < 1:16 INTERPRETIVE INFORMATION: A. phagocytophilum (HGA) Antibody, IgM Less than 1:16 - No significant level of IgM antibodies to A. phagocytophilum detected. Greater than or equal to 1:16 - Suggestive of a current or recent infection with A. phagocytophilum. Test developed and characteristics determined by [facility]. See Compliance Statement B: [employer]/CS Performed by [facility], [address] [place] [address] www.[facility], Sundar Fields MD, Lab. Director Unless otherwise specified, testing performed by [facility] [address] [place] [id number] 13 < 1:16 Reference range: < 1:16 INTERPRETIVE INFORMATION: Babesia microti Antibody, IgG Less than 1:16 ........ Negative - No significant level of detectable Babesia IgG antibodies. 1:16 .................. Equivocal - Repeat testing in 10-14 days may be helpful. Greater than 1:16 ..... Positive - IgG antibodies to Babesia detected which may indicate a current or previous infection. Test developed and characteristics determined by [facility]. See Compliance Statement A: [facility] 14 <1:20 Reference range: <1:20 INTERPRETIVE INFORMATION: Babesia microti Antibody, IgM Less than 1:20 ........ Negative - No significant level of detectable Babesia IgM antibodies. 1:20 .................. Equivocal - Repeat testing in 10-14 days may be helpful. Greater than 1:20 ..... Positive - IgM antibodies to Babesia detected which may indicate a current or recent infection. Test developed and characteristics determined by [facility]. See Compliance Statement A: [facility]/CS Performed by [facility], [address] [place] [id number] www.[facility], Sundar Fields MD, Lab. Director Unless otherwise specified, testing performed by [facility] [address] [place] [id number] 15 Per NCEP ATP III Guidelines: Results lower than 40 mg/dL are suggestive of increased risk for coronary artery disease. Results > or = to 60 mg/dL are considered a negative risk factor. 16 Per NCEP ATP III Guidelines: Normal Population <130 Patients with medical conditions: CHD/DM Optimal: <100 Borderline high: 130-159 High: 160-189 Very high: >189 17 <1:64 Reference range: <1:64 INTERPRETIVE INFORMATION: Ehrlichia Chaffeensis IgG Ab Less than 1:64 ....... Negative: No significant level of Ehrlichia chaffeensis IgG antibody detected. 1:64-1:128 ........... Equivocal: Questionable presence of Ehrlichia chaffeensis IgG antibody detected. Repeat testing in 10-14 days may be helpful. 1:256 or greater ..... Positive: Presence of IgG antibody to Ehrlichia chaffeensis detected, suggestive of current or past infection. Seroconversion between acute and convalescent sera is considered strong evidence of recent infection. The best evidence for infection is a significant change (fourfold difference in titer) on two appropriately timed specimens, where both tests are done in the same laboratory at the same time. Test developed and characteristics determined by [facility]. See Compliance Statement B: [facility] 18 < 1:16 Reference range: < 1:16 INTERPRETIVE INFORMATION: Ehrlichia Chaffeensis IgM Ab Less than 1:16 ....... Negative - No significant level of Ehrlichia chaffeensis IgM antibody detected. 1:16 or greater ...... Positive - Presence of IgM antibody to Ehrlichia chaffeensis detected, suggestive of current or recent infection. While the presence of IgM antibodies suggest current or recent infection, low levels of IgM antibodies may occasionally persist for more than 12 months post-infection. A single IgM result should be interpreted with caution. Test developed and characteristics determined by [facility]. See Compliance Statement B: [facility]/CS Performed by [facility], [address] [place] [id number] www.[facility], Sundar Fields MD, Lab. Director Unless otherwise specified, testing performed by [facility] [address] [place] [address] 19 Updated reference range on new analyzer 20 Updated reference range on new analyzer 21 Updated reference range 02-03-2019 22 Updated Reference Range 23 Concerning GFR Guidelines for Americans: Normal function or mild renal disease, if clinically at risk: >/= 60 mL/min Moderately decreased: 30-59 Severely decreased: 15-29 Renal failure: <15 There is reduced accuracy above 60ml/min/1.73 m squared, but the numeric value may be clinically useful in the near 60 range 24 Concerning GFR Guidelines: Normal function or mild [...] drugs that are excreted by the kidneys. 25 Unless otherwise specified, testing performed by [facility] [address] [place] [id number] 26 Updated reference range on new analyzer 27 Updated reference range on new analyzer 28 Updated reference range 02-03-2019 29 Updated Reference Range 30 Concerning GFR Guidelines for Americans: Normal function or mild renal disease, if clinically at risk: >/= 60 mL/min Moderately decreased: 30-59 Severely decreased: 15-29 Renal failure: <15 There is reduced accuracy above 60ml/min/1.73 m squared, but the numeric value may be clinically useful in the near 60 range 31 Concerning GFR Guidelines: Normal function or mild [...] drugs that are excreted by the kidneys. 32 Per NCEP ATP III Guidelines: Results lower than 40 mg/dL are suggestive of increased risk for coronary artery disease. Results > or = to 60 mg/dL are considered a negative risk factor. 33 Per NCEP ATP III Guidelines: Normal Population [...] Essential (primary) hypertension Vicente Colon PA 12/21/2019 R97.20 Elevated prostate specific antigen [PSA] [facility] 12/21/2019 E78.2 Mixed hyperlipidemia Vicente Colon PA [...] E66.01 Morbid (severe) obesity due to excess BiteVicente evans PA calories 12/21/2019 Z68.42 Body mass index (BMI) 45.0-49.9, adult Vicente Colon PA 12/21/2019 R73.9 Hyperglycemia, unspecified [facility] 12/17/2019 R53.83 Other fatigue Renetta Moon MD 12/17/2019 R53.83 Other fatigue Nurses Schedule Joann 12/17/2019 I10 Essential (primary) hypertension Renetta Moon MD 12/17/2019 I10 Essential (primary) hypertension Nurses Schedule Joann 12/17/2019 E78.2 Mixed hyperlipidemia Renetta Moon MD 12/17/2019 E78.2 Mixed hyperlipidemia Nurses Schedule Joann 12/17/2019 M10.9 Gout, unspecified Renetta Moon MD 12/17/2019 M10.9 Gout, unspecified Nurses Schedule Joann 12/17/2019 R53.83 Other fatigue [facility] 12/17/2019 I10 Essential (primary) hypertension [facility] 12/17/2019 E78.2 Mixed hyperlipidemia [facility] 12/17/2019 M10.9 Gout, unspecified [facility] 11/17/2019 J01.90 Acute sinusitis, unspecified Vicente Colon PA 11/17/2019 R53.83 Other fatigue Vicente Colon PA 11/17/2019 E66.01 Morbid (severe) obesity due to excess BiteVicente evans PA calories 11/17/2019 M10.9 Gout, unspecified BiteVicente evans PA 11/17/2019 Z68.42 Body mass index (BMI) 45.0-49.9, adult Vicente Colon PA 11/17/2019 J02.9 Acute pharyngitis, unspecified Vicente Colon PA 10/22/2019 I10 Essential (primary) hypertension Vicetne Colon PA 10/22/2019 E78.2 Mixed hyperlipidemia Vicente Colon PA 10/22/2019 R73.9 Hyperglycemia, unspecified BiteVicente evans PA 10/22/2019 M10.9 Gout, unspecified BiterVicente PA 10/22/2019 G47.33 Obstructive sleep apnea (adult) (pediatric) Vicente Colon PA 10/22/2019 R97.20 Elevated prostate specific antigen [PSA] Vicente Colon PA 10/22/2019 Z72.0 Tobacco use TheresarVicente PA 10/22/2019 I83.813 Varicose veins of bilateral lower Vicente Colon PA extremities with pain 10/22/2019 E66.01 Morbid (severe) obesity due to excess BiteVicente evans PA calories 10/22/2019 Z68.42 Body mass index [...] [facility] Plan of Treatment Future Appointment(s):03/22/2020 7:30 am - Vicente Colon PA at [id number] - Vicente Colon PAZ00.01 Encounter for general adult medical examination with abnormal findingsNew Medication:Shingrix 50 mcg/0.5ML - 1 injection as directedComments:EKG -- todayPSA -- due to recheck todayDRE -- defer to next yearColonoscopy -- + FH colon CA at 49yoMammo -- n/aPap -- n/aDEXA [68yo] -- n/ aFlu Vax -- 06/2019Pneumovax -- n/aPrevnar -- n/aShingrix -- sent to pharmacy.Tdap -- 01/2015Hep C -- n/aAAA screen -- n/a age [65-75yo]Lung CA -- n/ a age [55-80yo]Ophtho -- q 1yrDentist -- q 4monthsHearing -- no issuesMemory/ Cognition -- no issuesSexual Fxn -- fxn okayUrinary Fxn -- no issuesADL's -- independentIADL's -- independent Diet -- no special dietSafety at Home -- no concernsEnd of Life --Referral:Geremias Cruz MD, [id number] Essential ( primary) hypertensionNew Medication:Lisinopril 40 mg - 1 by mouth every morningComments:stable on meds. slightly high iywcnR66.2 Mixed hyperlipidemiaComments:fatigue and aches on the rosuvastatin. h/o not feeling well on rosuvastatin, atorvastatin, and simvastatin.??try Livalo -- pt to return for fasting labs. taking it most mmuobfI68.9 Gout, unspecifiedNew Medication:Allopurinol 300 mg - 1 by mouth every dayComments:has been increasing the allopurinol [now at 200mg] and feeling a little better. ? tick dz. will increase to 300mg.R73.9 Hyperglycemia, unspecifiedComments:A1C 6.1 - 08/2019 -- pre DM. beginnings of reduced insulin sensitivity Long discussion about pathopys of DM and preDM and treating early discussed CV risk ~16min and weight loss needed. ??treat.G47.33 Obstructive sleep apnea (adult) ( pediatric)Comments:using new bed that lifts up head. feels better in the morning. alert and energetic. h/o sleep study.R97.20 Elevated prostate specific antigen [PSA]Comments:recheck NL 07/2018. due to redraw.Z72.0 Tobacco useComments:stopped the cigarettes 09/2016. occasional chew on a cigar.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Comments:will Rx compression qxeqfrbppB70.5 Encounter for screening for malignant neoplasm of prostateComments:check PSA today. declined examZ12.11 Encounter for screening for malignant neoplasm of colonComments:with +FH. need colo. referral done.E66.01 Morbid (severe) obesity due to excess caloriesComments:lost 15lbs . lost 9 more pounds. doing well but none lost thru holidays UPDATE 2019:gained 10lbs. discuss ~16min weight loss and diet with likely heading to DM.Z68.42 Body mass index (BMI) 45.0-49.9, adult Functional Status Description No Information Available Mental Status Description No Information Available Referrals Refer to Reason for Referral Status Appt Date Geremias Cruz MD screening colo Created [address] [facility],[place] [address] [phone]
--- OUTSIDE RECORDS SUMMARY | 2020-01-13 13:58 | XMS REPORT | Continuity of Care Document ---
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 [phone] Problems Active Problems Provider Date Raised prostate [...] Synjardy XR 1 by mouth every 90tabs [facility], 12/22/2019 in the morning Renetta Mejia MD 12.5-1000mg Tablets ER 24HR Allopurinol 1 by mouth every 90tabs M10.9 [facility], 12/21/2019 300mg day Renetat Mejia MD Tablets Shingrix 1 injection as 1units Z00.01 [facility], 12/21/2019 50mcg/0.5ML directed Renetta Mejia MD Suspension Rec Lisinopril 1 by mouth every 90tabs I10 [facility], 12/21/2019 40mg morning Renetta Mejia MD Tablets Activa Graduated wear thru day as 4pair I83.813 [facility], 08/30/2019 Therapy much as possible Renetta Mejia MD 20-30MMHG/Knee High/X-Large Misc Livalo 1 by mouth every 90tabs E78.2 [facility], 12/25/2018 4mg Tablets day [Failed Zocor, Renetta Mejia MD Lipitor, Crestor] Nicotine Mini 1 by mouth every 2 324units Z72.0 [facility], 09/17/2016 2mg hours as needed Renetta Mejia MD Lozenges cravings Proair HFA 2 P Four Times A 1units R06.2 Natasha Porter 11/19/2013 Day as Needed TER[facility] [employer] 108(90Base) mcg/Act Aerosol Colcrys 2 tabs at time of 45tabs M10.9 [facility], 07/23/2013 0.6mg Tablets flare, may take Renetta Mejia MD additional 1 tab 1 hour later,max 3 pills daily, then one tab once to twice daily Indomethacin Take 1 Capsule By 45caps M10.9 [facility], 10/22/2011 50mg Mouth Twice Daily Renetta Mejia MD Capsules as Needed. Max 4 Days Per Flare Fish Oil 1 po qd E78.2 Natasha oPrter 10/22/2011 500mg TERRA [facility] [employer] Capsules Aspirin 1 PO qd I10 [facility], 01/21/2006 81mg Chewtabs Renetta Mejia MD Vitamin C 1 by mouth every Unknown Capsules day Vitamin D 1 by mouth every Unknown (Cholecalciferol) day Capsules History Medications Levofloxacin 1 by mouth 7tabs J01.90 Renetta Moon 11/19/2019 - 750mg every day for 7 MMD 11/26/2019 Tablets days Amoxicillin/Clavulana 1 by mouth [...] CPT Code Status Date Vaccine Lot # [id number] Given 07/05/2019 Influenza Vac, Quadrivalent, Split, 0.5mL Dosage, Im Use 28935 Given 07/29/2016 Influenza Vac, Quadrivalent, Split, 0.5mL Dosage, [id number] Im Use 92175 Given 08/11/2015 Influenza Vac, Quadrivalent, Split, 0.5mL Dosage, [id number] Im Use 83039 Given 01/12/2015 Tdap (Adacel) Ages 7 And Above Only [id number] Given 07/23/2013 Fluzone Trivalent Immunization [id number] Given 06/23/2006 Tetanus And Diptheria Toxoid 7 Years And Older [id number] Preserv Free Vital Signs Date Vital Result [...] Estimated Average Glucose Calc 140 mg/dL 71-140 Lyme Igm/Igg AB -RL 12/17/2019 [facility] Lyme Igm/Igg AB @ NEGATIVE (Neg) 8 Hga Antibodies,IgG and IgM 12/17/2019 [facility] Hga AB Igg <1:80 9 -RL Hga AB Igm < 1:16 10 Babesia M AB Igg Igm -RL 12/17/2019 [facility] Babesia Microti Igg < 1:16 11 Babesia Microti Igm <1:20 12 Laboratory test finding 12/17/2019 [facility] Uric Acid 7.6 mg/dL 2.6-8.4 Lipid 12/17/2019 [facility] Cholesterol 179 mg/dL 50-199 Triglycerides 195 mg/dL 30-200 HDL 43 mg/dL 29-71 13 Chol/ HDL Ratio 4.1 ratio 4.0-6.7 VLDL 39 mg/dL High 2-29 LDL (Calc) 97 mg/dL 20-99 14 E Chaffeensis Abs 12/17/2019 [facility] E Chaffeensis Igg <1:64 15 E Chaffeensis Igm < 1:16 16 Laboratory test finding 12/17/2019 [facility] Magnesium 1.7 mg/dL 1.5-2.7 Comprehensive Met Panel-[facility] 12/17/2019 [facility] Sodium 140 mmol/L 135- 146 17 Potassium 4.9 mmol/L 3.5-5.2 Chloride# 101 mmol/L 97-110 18 Carbon Dioxide 30 mmol/L 24-34 Calcium 9.5 mg/dL 8.5-10.5 19 Glucose 103 mg/dL 70-105 BUN 16 mg/dL 6-26 Creatinine 1.0 mg/dL 0.5-1.4 Total Protein 6.8 g/dL 6.0-8.0 Albumin 4.4 g/dL 3.6-4.9 Globulin 2.4 g/dL 2.0-3.5 A/G Ratio 1.8 Ratio 1.0-2.2 Total Bilirubin 0.5 mg/dL 0.1-1.3 Alkaline Phosphatase 68 U/L 24-140 Alt 33 U/L 3-42 Ast 24 U/L 8-42 Anion Gap 9 mmol/L 5-15 20 Female Egfr 63 >60 21 Male Egfr 84 >60 22 CBC with Auto Diff-fcmg 12/17/2019 [facility] RBC 4.77 10*6/uL (4.60-6.10) HGB 14.4 g/dL (13.5-18.0) HCT 43.7 % (41.0-53.0) MCV 91.5 fL (80.0-95.0) MCH 30.2 pg (27.0-32.0) MCHC 33.0 g/dL (32.0-36.0) RDW 15.6 % High (10.5-14.5) PLT 209 10*3/uL (150-450) MPV 8.9 fL (7.1-10.7) WBC 7.0 10*3/uL (4.1-11.0) Neut % 57.1 % (35.0-75.0) Lymph % 32.9 % (16.0-52.0) Baxter % 6.1 % (0.0-8.0) Eos % 3.2 % (0.0-5.0) Baso % 0.7 % (0.0-4.0) Neut # 4.0 10*3/uL (1.8-7.7) Lymph # 2.3 10*3/uL (1.2-4.8) Baxter # 0.4 10*3/uL (0.0-0.8) Eos # 0.2 10*3/uL (0.0-0.5) Baso # 0.0 10*3/uL (0.0-0.2) 23 Laboratory test 11/17/2019 Done In Doctors Office 1 Rapid Flu A=NEG B=NEG finding Test (In House) Laboratory test 10/20/2019 [facility] Uric Acid 8.5 mg/dL High 2.6-8.4 finding Comprehensive Met 08/17/2019 [facility] Sodium 141 mmol/L 135-146 24 Panel-[facility]G Potassium 5.3 mmol/L High 3.5-5.2 Chloride# 102 mmol/L 97-110 25 Carbon Dioxide 22 mmol/L Low 24-34 Calcium 9.6 mg/dL 8.5-10.5 26 Glucose 104 mg/dL 70-105 BUN 14 mg/dL 6-26 Creatinine 1.0 mg/dL 0.5-1.4 Total Protein 7.0 g/dL 6.0-8.0 Albumin 4.3 g/dL 3.6-4.9 Globulin 2.7 g/dL 2.0-3.5 A/G Ratio 1.6 Ratio 1.0-2.2 Total Bilirubin 0.7 mg/dL 0.1-1.3 Alkaline Phosphatase 70 U/L 24-140 Alt 30 U/L 3-42 Ast 24 U/L 8-42 Anion Gap 17 mmol/L High 5-15 27 Female Egfr 68 >60 28 Male Egfr 90 >60 29 Lipid 08/17/2019 [facility] Cholesterol 211 mg/dL High 50-199 Triglycerides 240 mg/dL High 30-200 HDL 40 mg/dL 29-71 30 Chol/ HDL Ratio 5.3 ratio 4.0-6.7 VLDL 48 mg/dL High 2-29 LDL (Calc) 123 mg/dL High 20-99 31 Laboratory test finding 08/17/2019 [facility] Magnesium 1.8 mg/dL 1.5-2.7 Uric Acid 8.6 mg/dL High 2.6-8.4 Hemoglobin A1c 08/17/2019 [facility] Hemoglobin A1c 6.1 % High 4.1-5.9 Estimated Average Glucose Calc 128 mg/dL 71-140 1 Beginning 2/26/07 PSA values assayed at [facility] [employer] uses chemiluminescence methodology manufactured by [email or web address] for use on the DXI analyzer. Values [...] that are excreted by the kidneys. 8 A Negative serologic test for Lyme Disease indicates no serologic evidence of infection with B burgdorferi at the time this specimen was collected. A repeat specimen should be collected in 2 to 4 weeks if clinically indicated. Unless otherwise specified, testing performed by [facility] [address] [place] [id number] 9 <1:80 Reference range: <1:80 INTERPRETIVE INFORMATION: A. phagocytophilum (HGA) Antibody, IgG Less than 1:80 - No significant level of IgG antibodies to A. phagocytophilum detected. Greater than or equal to 1:80 - Suggestive of a recent or past infection with A. phagocytophilum. Test developed and characteristics determined by [facility]. See Compliance Statement B: [employer] 10 < 1:16 Reference range: < 1:16 INTERPRETIVE INFORMATION: A. phagocytophilum (HGA) Antibody, IgM Less than 1:16 - No significant level of IgM antibodies to A. phagocytophilum detected. Greater than or equal to 1:16 - Suggestive of a current or recent infection with A. phagocytophilum. Test developed and characteristics determined by [facility]. See Compliance Statement B: [employer]/CS Performed by [facility], [address] [place] [address] www.Room 77, Sundar Fields MD, Lab. Director Unless otherwise specified, testing performed by [facility] [address] [place] [address] 11 < 1:16 Reference range: < 1:16 INTERPRETIVE INFORMATION: Babesia microti Antibody, IgG Less than 1:16 ........ Negative - No significant level of detectable Babesia IgG antibodies. 1:16 .................. Equivocal - Repeat testing in 10-14 days may be helpful. Greater than 1:16 ..... Positive - IgG antibodies to Babesia detected which may indicate a current or previous infection. Test developed and characteristics determined by [facility]. See Compliance Statement A: Room 77/[employer] 12 <1:20 Reference range: <1:20 INTERPRETIVE INFORMATION: Babesia microti Antibody, IgM Less than 1:20 ........ Negative - No significant level of detectable Babesia IgM antibodies. 1:20 .................. Equivocal - Repeat testing in 10-14 days may be helpful. Greater than 1:20 ..... Positive - IgM antibodies to Babesia detected which may indicate a current or recent infection. Test developed and characteristics determined by [facility]. See Compliance Statement A: Room 77/CS Performed by [facility], [address] [place] [address] www.Room 77, Sundar Fields MD, Lab. Director Unless otherwise specified, testing performed by [facility] [address] [place] [address] 13 Per NCEP ATP III Guidelines: Results lower than 40 mg/dL are suggestive of increased risk for coronary artery disease. Results > or = to 60 mg/dL are considered a negative risk factor. 14 Per NCEP ATP III Guidelines: Normal Population <130 Patients with medical conditions: CHD/DM Optimal: <100 Borderline high: 130-159 High: 160-189 Very high: >189 15 <1:64 Reference range: <1:64 INTERPRETIVE INFORMATION: Ehrlichia [...] time. Test developed and characteristics determined by [facility]. See Compliance Statement B: Room 77/[employer] 16 < 1:16 Reference range: < 1:16 INTERPRETIVE [...] caution. Test developed and characteristics determined by [facility]. See Compliance Statement B: [employer]/CS Performed by [facility], [address] [place] [id number] www.Room [address], Sundar Fields MD, Lab. Director Unless otherwise specified, testing performed by [facility] [address] [place] [address] [place] [address] 17 Updated reference range on new analyzer 18 Updated reference range on new analyzer 19 Updated reference range 02-03-2019 20 Updated Reference Range 21 Concerning GFR Guidelines for Americans: Normal function or mild renal disease, if clinically at risk: >/= 60 mL/min Moderately decreased: 30-59 Severely decreased: 15-29 Renal failure: <15 There is reduced accuracy above 60ml/min/1.73 m squared, but the numeric value may be clinically useful in the near 60 range 22 Concerning GFR Guidelines: Normal function or mild [...] drugs that are excreted by the kidneys. 23 Unless otherwise specified, testing performed by [facility] [employer] [facility] [place] [address] 24 Updated reference range on new analyzer 25 Updated reference range on new analyzer 26 Updated reference range 02-03-2019 27 Updated Reference Range 28 Concerning GFR Guidelines for Americans: Normal function or mild renal disease, if clinically at risk: >/= 60 mL/min Moderately decreased: 30-59 Severely decreased: 15-29 Renal failure: <15 There is reduced accuracy above 60ml/min/1.73 m squared, but the numeric value may be clinically useful in the near 60 range 29 Concerning GFR Guidelines: Normal function or mild [...] drugs that are excreted by the kidneys. 30 Per NCEP ATP III Guidelines: Results lower than 40 mg/dL are suggestive of increased risk for coronary artery disease. Results > or = to 60 mg/dL are considered a negative risk factor. 31 Per NCEP ATP III Guidelines: Normal Population [...] due to excess Vicente Colon PA calories 12/21/2019 Z68.42 Body mass index (BMI) 45.0-49.9, adult Vicente Colon PA 12/21/2019 R73.9 Hyperglycemia, unspecified [facility] 12/17/2019 R53.83 Other fatigue Nurses Schedule Joann 12/17/2019 I10 Essential (primary) hypertension Nurses Schedule Joann 12/17/2019 E78.2 Mixed hyperlipidemia Nurses Schedule Joann 12/17/2019 M10.9 Gout, unspecified Nurses Schedule Joann 12/17/2019 R53.83 Other fatigue [facility] 12/17/2019 I10 Essential (primary) hypertension [facility] 12/17/2019 E78.2 Mixed hyperlipidemia [facility] 12/17/2019 M10.9 Gout, unspecified [facility] 11/17/2019 J01.90 Acute sinusitis, unspecified [facility] evans PA 11/17/2019 R53.83 Other fatigue [facility] evans PA 11/17/2019 E66.01 Morbid (severe) obesity due to excess [facility] evans PA calories 11/17/2019 M10.9 Gout, unspecified [facility] evans PA 11/17/2019 Z68.42 Body mass index (BMI) 45.0-49.9, adult [facility] evans PA 11/17/2019 J02.9 Acute pharyngitis, unspecified [facility] evans PA 10/22/2019 I10 Essential (primary) hypertension [facility]ente evans PA 10/22/2019 E78.2 Mixed hyperlipidemia [facility]ite[facility]ente evans PA 10/22/2019 R73.9 Hyperglycemia, unspecified [facility]ente evans PA 10/22/2019 M10.9 Gout, unspecified [facility] evans PA 10/22/2019 G47.33 Obstructive sleep apnea (adult) (pediatric) Vicente Colon PA 10/22/2019 R97.20 Elevated prostate specific antigen [PSA] Vicente Colon PA 10/22/2019 Z72.0 Tobacco use Vicente Colon PA 10/22/2019 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 slightly high sygywN89.2 Mixed hyperlipidemiaComments:fatigue and aches on the rosuvastatin. h/o not feeling well on rosuvastatin, atorvastatin, and simvastatin.??try Livalo -- pt to return for fasting labs. taking it most aqdwqyV18.9 Gout, unspecifiedNew Medication:Allopurinol 300 mg - 1 [...] bilateral lower extremities with painComments:will Rx compression zehzizsgxW35.5 Encounter for screening for malignant neoplasm of [...] Date Geremias Cruz MD screening colo Created [address] [facility] [address] [phone]
[2020-01-13 15:52] VITALS: BP 137/85
== END 2020-01-13 15:50 | disposition home or self-care (01) ==
LOC: ED 12:41
DX: I10 Essential (primary) hypertension (principal); R07.9 Chest pain, unspecified; R42 Dizziness and giddiness; M10.9 Gout, unspecified; E11.9 Type 2 diabetes mellitus without complications; F17.210 Nicotine dependence, cigarettes, uncomplicated; Z79.82 Long term (current) use of aspirin; Z79.899 Other long term (current) drug therapy
CPT/HCPCS: 36415; 71045; 80053; 80320; 84484; 85025; 93005; 99283; G0480

== ENCOUNTER 2021-06-06 10:25 | Observation (INO) ==
[2021-06-06 12:03] LABS: ABS Basophils 0.1 10^3/ul (0-0.2); ABS Eosinophils 0.2 10^3/ul (0-0.6); ABS Lymphocytes 2.1 10^3/ul (1.0-4.8); ABS Neutrophils 7.1 10^3/ul (1.5-7.7); Eosinophil % 1.7 %; Hematocrit 28 % (42-52); Hemoglobin 8.8 g/dL (14.0-18.0); Lymphocyte % 19.9 %; Mean Corpuscular HGB Conc 32 g/dL (31-36); Mean Corpuscular Hemoglobin 26 pg (27-31); Mean Corpuscular Volume 80 fL (80-94); Platelet Count 410 10^3/uL (150-450); Red Blood Count 3.47 10^6 /uL (4.18-5.48); Red Cell Distribution Width 19 % (10-15); White Blood Count 10.5 10^3/uL (3.5-10.8)
[2021-06-06 12:20] LABS: ALT 64 U/L (7-52); AST 35 U/L (13-39); Albumin 3.2 g/dL (3.2-5.2); Albumin/Globulin Ratio 0.7 (1-3); Alkaline Phosphatase 144 U/L (35-149); Anion Gap 9 mmol/L (2-11); Blood Urea Nitrogen 13 mg/dL (6-24); CO2 Carbon Dioxide 27 mmol/L (22-32); Calcium 9.3 mg/dL (8.6-10.3); Chloride 100 mmol/L (101-111); Creatine Kinase 19 U/L (10-223); EGFR African American 148.2 (>60); EGFR Non-African American 122.5 (>60); Globulin 4.4 g/dL (2-4); Glucose 124 mg/dL (70-100); Potassium 4.5 mmol/L (3.5-5.0); Sodium 136 mmol/L (135-145); Total Protein 7.6 g/dL (6.4-8.9)
[2021-06-06 12:21] LABS: INR 1.47 (0.86-1.15)
[2021-06-06 12:22] LABS: Troponin I 0.01 ng/mL (<0.03)
[2021-06-06] MEDS ORDERED: Iodixanol (CONTRAST) 320 MG/ML 100 ML SDV IV ONE (13:06)
[2021-06-06] MEDS ORDERED: Iohexol 300 (CONTRAST) 10 ML SDV IV ONE (14:31)
[2021-06-06 15:02] LABS: Urine Appearance Clear; Urine Bilirubin Negative (Negative); Urine Blood Negative (Negative); Urine Color Yellow; Urine Glucose Negative (Negative); Urine Ketones Negative (Negative); Urine Nitrite Negative (Negative); Urine Protein Negative (Negative); Urine Urobilinogen Negative (Negative)
[2021-06-06] MEDS ORDERED: Albuterol HFA INHALER 8 gm MDI INH PRN (16:15)
[2021-06-06 18:03] LABS: C Reactive Protein 179.03 mg/L (<8.01); Cholesterol 103 mg/dL; HDL Cholesterol 29.2 mg/dL; LDL Cholesterol 60 mg/dL; Triglycerides 67 mg/dL
[2021-06-06 18:07] LABS: Total Iron Binding Capacity 228 mcg/dL (250-450); Transferrin 163 mg/dL (203-362)
[2021-06-06 18:15] LABS: % Iron Saturation 9 % (15-55); Iron < 20 ug/dL (50-212); Unsaturated Iron Binding < 213 ug/dL
[2021-06-06 18:28] LABS: Ferritin 814.5 ng/mL (24-336)
[2021-06-06 18:32] LABS: Folate 16.91 ng/mL (5.90-24.80)
[2021-06-06 18:33] LABS: Vitamin B12 293 pg/mL (180-914)
[2021-06-06 19:17] LABS: Erythrocyte Sed Rate > 120 mm/Hr (0-19)
[2021-06-06] MEDS ORDERED: Metformin ER 500 mg TAB (NF) PO SCH (21:00)
[2021-06-06] MEDS: Enoxaparin 40 MG/0.4 ML SYR SUBCUT SCH (21:28)
[2021-06-07] MEDS: Aspirin EC 81 mg TAB.EC (enteric coated) PO SCH (09:33)
[2021-06-07 10:10] LABS: Hematocrit 27 % (42-52); Hemoglobin 8.9 g/dL (14.0-18.0); Mean Corpuscular HGB Conc 32 g/dL (31-36); Mean Corpuscular Hemoglobin 26 pg (27-31); Mean Corpuscular Volume 79 fL (80-94); Mean Platelet Volume 7.4 fL (7.4-10.4); Platelet Count 413 10^3/uL (150-450); Red Blood Count 3.47 10^6 /uL (4.18-5.48); Red Cell Distribution Width 19 % (10-15); White Blood Count 8.5 10^3/uL (3.5-10.8)
[2021-06-07] MEDS: Enoxaparin 40 MG/0.4 ML SYR SUBCUT SCH (20:51)
[2021-06-08 07:49] LABS: ABS Basophils 0.1 10^3/ul (0-0.2); ABS Eosinophils 0.1 10^3/ul (0-0.6); ABS Lymphocytes 1.8 10^3/ul (1.0-4.8); ABS Monocytes 0.9 10^3/ul (0-0.8); ABS Neutrophils 6.7 10^3/ul (1.5-7.7); Eosinophil % 1.5 %; Hematocrit 27 % (42-52); Hemoglobin 8.5 g/dL (14.0-18.0); Lymphocyte % 18.6 %; Mean Corpuscular HGB Conc 32 g/dL (31-36); Mean Corpuscular Hemoglobin 25 pg (27-31); Mean Corpuscular Volume 78 fL (80-94); Mean Platelet Volume 7.8 fL (7.4-10.4); Nucleated Red Blood Cells % 0.1; Platelet Count 380 10^3/uL (150-450); Red Blood Count 3.42 10^6 /uL (4.18-5.48); Red Cell Distribution Width 19 % (10-15); White Blood Count 9.7 10^3/uL (3.5-10.8)
[2021-06-08 08:01] LABS: Albumin/Globulin Ratio 0.7 (1-3); C Reactive Protein 183.21 mg/L (<8.01); Calcium 9.1 mg/dL (8.6-10.3); EGFR African American 136.5 (>60); EGFR Non-African American 112.8 (>60); Globulin 4.3 g/dL (2-4); Potassium 4.4 mmol/L (3.5-5.0); Total Bilirubin 0.5 mg/dL (0.2-1.0); Total Protein 7.3 g/dL (6.4-8.9)
[2021-06-08] MEDS ORDERED: Regadenoson 0.4 MG/5 ML SYRINGE ONE (08:43)
[2021-06-08] MEDS ORDERED: Aminophylline 25 MG/ML VIAL ONE (08:44)
[2021-06-08] MEDS: Aspirin EC 81 mg TAB.EC (enteric coated) PO SCH (10:45)
[2021-06-08 14:25] VITALS: BP 124/74
== END 2021-06-08 15:25 | disposition home or self-care (01) ==
LOC: MED 10:25 → ED 10:25 → SUATTDRO 16:11 → MED 18:35
PROVIDERS: ADMIT Hospitalist; ATTEND Internal Medicine